=== PATIENT | male | born 1940 | race Caucasian/White ===

== ENCOUNTER 2019-05-02 09:49 | Emergency (ER) | payer MEDICARE, BC ==
[2019-05-02 09:58] VITALS: BP 140/76; PULSE 84
[2019-05-02] MEDS ORDERED: Acetaminophen/HYDROcodone 325-5 MG Tab PO ONE (10:27)
--- NOTE | 2019-05-02 11:17 | EDM.PDOC ---
ED HPI GENERAL MEDICAL PROBLEM - General Chief Complaint: Upper Extremity Injury/Pain Stated Complaint: LEFT WRIST MAYBE BROKEN Time Seen by Provider: 05/02/19 10:13 Source of Information: Reports: Patient, Family, RN Notes Reviewed - History of Present Illness INITIAL COMMENTS - FREE TEXT/NARRATIVE: 79-year-old male comes in with left wrist injury. He was helping out with calving type chores and an angry cow attacked and hit him knocking him over with resultant left wrist injury. His pain swelling and deformity of the left wrist. No weakness, numbness or tingling. He also did hit his right face on something but that discomfort is very mild. No Headache or LOC. No neck or back discomfort. No chest pain or difficulty breathing. Left Wrist Pain Score (Numeric/FACES): 10 - Related Data Allergies Allergy/AdvReac Type Severity Reaction Status Date / Time No Known Allergies Allergy Verified 05/02/19 09:59 Home Meds: Home Meds Acetaminophen/HYDROcodone [[place] 325-5 MG] 1 tab PO Q6H PRN #14 tablet 05/02/19 [Rx] Past Medical History - Past Surgical History Musculoskeletal Surgical History: Reports: Knee Replacement Other Musculoskeletal Surgeries/Procedures:: bilateral Social & Family History - Tobacco Use Smoking Status *Q: Never Smoker Second Hand Smoke Exposure: No - Caffeine Use Caffeine Use: Reports: Coffee - Recreational Drug Use Recreational Drug Use: No Review of Systems - Review of Systems Review Of Systems: See Below Eyes: Reports: No Symptoms Ears: Reports: No Symptoms Nose: Reports: No Symptoms Mouth/Throat: Reports: No Symptoms Respiratory: Denies: Shortness of Breath, Pleuritic Chest Pain Cardiovascular: Denies: Chest Pain GI/Abdominal: Denies: Abdominal Pain Musculoskeletal: Reports: Joint Pain (Left wrist) Skin: Reports: No Symptoms Neurological: Denies: Numbness, Tingling, Weakness ED EXAM, GENERAL - Physical Exam Exam: See Below General Appearance: Alert, Mild Distress Eye Exam: Bilateral Eye: PERRL Nose: Normal Inspection Throat/Mouth: Normal Inspection Head: Other (Very mild erythema swelling right mid face, no bony tenderness, jaw nontender with good range of motion) Neck: Supple, Non-Tender Respiratory/Chest: No Respiratory Distress, Lungs Clear, Normal Breath Sounds, Chest Non-Tender Cardiovascular: Regular Rate, Rhythm Back Exam: No: Paraspinal Tenderness, Vertebral Tenderness Extremities: Joint Swelling (There is swelling, deformity of the left wrist moderate diffuse tenderness, voiding motion of the wrist due to discomfort.) Neurological: Alert, Oriented, No Motor/Sensory Deficits Skin Exam: Warm, Dry, Normal Color Course - Vital Signs Last Recorded V/S: Last Vital Signs Temp 97.6 F 05/02/19 09:55 Pulse 84 05/02/19 09:55 Resp 18 05/02/19 09:55 BP 140/76 05/02/19 09:55 Pulse Ox 95 05/02/19 09:55 - Orders/Labs/Meds Orders: Active Orders 24 hr Category Date Time Status Wrist Comp Min 3V Lt [CR] Stat Exams 05/02/19 10:23 Taken DME for Discharge [COMM] Stat Oth 05/02/19 12:10 Ordered Meds: Medications Discontinued Medications Generic Name Dose Route Start Last Admin Trade Name Freq PRN Reason Stop Dose Admin Hydrocodone Bitart/Acetaminophen 1 tab 05/02/19 10:27 05/02/19 10:32 [place] 325-5 Mg PO 05/02/19 10:28 1 tab ONETIME ONE Administration - Re-Assessments/Exams Free Text/Narrative Re-Assessment/Exam: 05/02/19 12:18 Xays do show displaced fracture of the left wrist with volar displacement. He has no weakness, numbness or tingling. Splint has been applied, we have contacted Dr. Mayers's office, he will review the x-rays, contact patient for follow-up appointment. Ied. Departure - Departure Time of Disposition: 11:11 Disposition: Home, Self-Care 01 Condition: Fair Clinical Impression: Fall Wrist fracture, left Qualifiers: Encounter type: initial encounter Fracture type: closed Qualified Code(s): S62.102A - Fracture of unspecified carpal bone, left wrist, initial encounter for closed fracture - Discharge Information Prescriptions: Acetaminophen/HYDROcodone [[place] 325-5 MG] 1 tab PO Q6H PRN #14 tablet PRN Reason: Pain Instructions: RICE Therapy for Routine Care of Injuries, [id number], Radial Fracture, Ulnar Fracture Referrals: Jus Barger MD [Primary Care Provider] - Forms: ED Department Discharge Additional Instructions: Ice packs and elevation for swelling. Fiberglass wrist splint, keep splint dry. Sling. Tylenol every 6 to 8 hours as needed for mild to moderate discomfort or hydrocodone if needed for more severe pain. Prescription has been sent to [facility] [place] at the [employer] [facility]. You may also take just a half tablet hydrocodone q 6 to 8 hr along with 500 mg tylenol once the pain is less severe. See Dr. Mayers, Orthopedist in follow-up. He will review the Xrays today and his office will call you to give a time for follow up appointment. Sepsis Event Note - Evaluation Sepsis Screening Result: No Definite Risk - Focused Exam Vital Signs: Vital Signs Temp Pulse Resp BP Pulse Ox 05/02/19 09:55 97.6 F 84 18 140/76 95 Date Exam was Performed: 05/02/19 Time Exam was Performed: 12:14 - My Orders Last 24 Hours: My Active Orders 05/02/19 10:23 Wrist Comp Min 3V Lt [CR] Stat 05/02/19 12:10 DME for Discharge [COMM] Stat - Assessment/Plan Last 24 Hours: My Active Orders 05/02/19 10:23 Wrist Comp Min 3V Lt [CR] Stat 05/02/19 12:10 DME for Discharge [COMM] Stat
--- NOTE | 2019-05-02 12:21 | CR ---
Left wrist: Four views of the left wrist were obtained. Comparison: No prior wrist study. Distal left radial fracture is seen with anterior displacement of the distal fragment. Fracture is noted within the ulnar styloid process. Soft tissue swelling is noted. Degenerative change is noted within the CMC joint of the thumb. Joint space narrowing is also noted off the distal navicular bone. Impression: 1. Displaced distal left radial fracture. 2. Ulnar styloid avulsion fracture. 3. Other findings as described above. Diagnostic code #3 This report was dictated in [place] Standard Time
== END 2019-05-02 12:05 | disposition home or self-care (01) ==
LOC: JD.ED 09:49
DX: S52.502A Unspecified fracture of the lower end of left radius, initial encounter for closed fracture (principal); S52.612A Displaced fracture of left ulna styloid process, initial encounter for closed fracture; W55.22XA Struck by cow, initial encounter
CPT/HCPCS: 29125; 73110; 99283; A9270

== ENCOUNTER 2019-05-09 06:29 | Day surgery (SDC) | payer MEDICARE, BC ==
[~2019-05-09 06:29] MED LIST: Lactated Ringers 1,000 ML IV SCH; Lidocaine 1%/Sod Bicarbonate in NS 8.4% 1 ML Syringe IDERM PRN; Sodium Chloride 0.9% 10 ML Syringe FLUSH PRN
--- NOTE | 2019-05-09 07:18 | PCM.PREANE ---
Preanesthetic Assessment - Anesthesia/Transfusion/Family Hx Anesthesia History: Prior Anesthesia Without Reaction Transfusion History: No Prior Transfusion(s) - Review of Systems General: No Symptoms Pulmonary: No Symptoms Cardiovascular: No Symptoms Gastrointestinal: No Symptoms Neurological: No Symptoms Other: Reports: None - Physical Assessment NPO Status Date: 05/08/19 NPO Status Time: 19:00 Vital Signs: Last Vital Signs Temp 97.6 F 05/09/19 06:35 Pulse 73 05/09/19 06:35 Resp 16 05/09/19 06:35 BP 134/82 05/09/19 06:35 Pulse Ox 97 05/09/19 06:35 Height: 1.83 m Weight: 99.337 kg ASA Class: 2 Mental Status: Alert & Oriented x3 Airway Class: Mallampati = 2 Dentition: Reports: Normal Dentition Thyro-Mental Finger Breadths: 3 Mouth Opening Finger Breadths: 3 ROM/Head Extension: Full Lungs: Clear to Auscultation Cardiovascular: Regular Rate - Lab Values: Laboratory Last Values MRSA (PCR) Negative 05/03/19 14:13 - Allergies Allergies/Adverse Reactions: Allergies Allergy/AdvReac Type Severity Reaction Status Date / Time No Known Allergies Allergy Verified 05/06/19 12:56 - Anesthesia Plan Beta Terra: Metoprolol Med Last Dose Date: 05/08/19 Med Last Dose Time: 10:00 - Acknowledgements Anesthesia Type Planned: General Anesthesia Pt an Appropriate Candidate for the Planned Anesthesia: Yes Alternatives and Risks of Anesthesia Discussed w Pt/Guardian: Yes Pt/Guardian Understands and Agrees with Anesthesia Plan: Yes PreAnesthesia Questionnaire HEENT History: Reports: Hard of Hearing, Impaired Vision, Other (See Below) Cardiovascular History: Reports: Hypertension Respiratory History: Reports: Sleep Apnea Gastrointestinal History: Reports: None Genitourinary History: Reports: None INDIGO VAT TENDER CLOTH History: Reports: None Musculoskeletal History: Reports: Arthritis, Other (See Below) Other Musculoskeletal History: left wrist fracture Psychiatric History: Reports: None Endocrine/Metabolic History: Reports: None Hematologic History: Reports: None Oncologic (Cancer) History: Reports: None Dermatologic History: Reports: None - Past Surgical History Head Surgeries/Procedures: Reports: None HEENT Surgical History: Reports: None Cardiovascular Surgical History: Reports: None Respiratory Surgical History: Reports: None GI Surgical History: Reports: Colonoscopy Female Surgical History: Reports: None Male Surgical History: Reports: None Endocrine Surgical History: Reports: None Neurological Surgical History: Reports: Lumbar Spine Musculoskeletal Surgical History: Reports: Knee Replacement Other Musculoskeletal Surgeries/Procedures:: bilateral Oncologic Surgical History: Reports: None Dermatological Surgical History: Reports: None - SUBSTANCE USE Smoking Status *Q: Never Smoker Recreational Drug Use History: No - HOME MEDS Home Medications: Home Meds Ascorbic Acid [Vitamin C] 500 mg PO DAILY 05/06/19 [History] Iron 18 mg PO DAILY 05/06/19 [History] Lisinopril/Hydrochlorothiazide [Lisinopril-Hctz 10-12.5 mg Tab] 1 tab PO DAILY 05/06/19 [History] Metoprolol Succinate [Toprol XL] 25 mg PO DAILY 05/06/19 [History] Acetaminophen/HYDROcodone [[place] 325-5 MG] 1 - 2 tab PO Q6H PRN #20 tablet 05/08 [Rx] - CURRENT (IN HOUSE) MEDS Current Meds: Current Medications Lactated Ringer's (Ringers, Lactated) 1,000 mls @ 125 mls/hr IV ASDIRECTED JARED Stop: 05/09/19 23:00 Lidocaine/Sodium Bicarbonate (Buffered Lidocaine 1% In Ns 8.4%) 0.25 ml IDERM ONETIME PRN PRN Reason: Prior to IV Start Stop: 05/09/19 18:00 Sodium Chloride (Saline Flush) 10 ml FLUSH ASDIRECTED PRN PRN Reason: Keep Vein Open Stop: 05/09/19 18:00 Discontinued Medications Bupivacaine HCl (Sensorcaine-Mpf 0.25%) Confirm Administered Dose 30 ml .ROUTE .STK-MED ONE Stop: 05/09/19 06:57
[2019-05-09] MEDS ORDERED: Propofol 200 MG/20 ML SDV ONE (07:28)
[2019-05-09] MEDS ORDERED: fentaNYL 250 MCG/5 ML SDV ONE (07:28)
[2019-05-09] MEDS ORDERED: Midazolam 1 MG/ML 2 ML SDV ONE (07:32)
[2019-05-09] MEDS ORDERED: Ondansetron 4 MG/2 ML SDV ONE (08:16)
[2019-05-09] MEDS: Bupivacaine 0.25% 10 ML SDV ONE ×2 (08:23→08:57)
[2019-05-09] MEDS ORDERED: HYDROmorphone 0.5 MG/0.5 ML Syringe IVPUSH PRN (08:27)
[2019-05-09] MEDS ORDERED: fentaNYL 100 MCG/2 ML SDV IVPUSH PRN (08:27)
[2019-05-09] MEDS ORDERED: Lactated Ringers 1,000 ML ONE (08:58)
[2019-05-09] MEDS ORDERED: Acetaminophen/HYDROcodone 325-5 MG Tab PO PRN (09:35)
--- NOTE | 2019-05-09 09:43 | PCM.POSTAN ---
POST ANESTHESIA ASSESSMENT - MENTAL STATUS Mental Status: Alert, Oriented - VITAL SIGNS Vital Signs: Last Vital Signs Temp 97.4 F 05/09/19 09:14 Pulse 76 05/09/19 09:14 Resp 12 05/09/19 09:14 BP 152/75 H 05/09/19 09:14 Pulse Ox 92 L 05/09/19 09:14 - RESPIRATORY Respiratory Status: Respiratory Rate WNL, Airway Patent, O2 Saturation Stable, Supplemental Oxygen - CARDIOVASCULAR CV Status: Pulse Rate WNL, Blood Pressure Stable - GASTROINTESTINAL GI Status: No Symptoms - PAIN Pain Score: 6 - POST OP HYDRATION Hydration Status: Adequate & Stable
[2019-05-09] MEDS ORDERED: Ropivacaine 0.5% 5 MG/ML 30 ML SDV ONE (12:22)
[2019-05-09] MEDS ORDERED: Lidocaine 1% 8 ML ONE (12:24)
--- NOTE | 2019-05-09 13:57 | CR ---
Left wrist: 11 fluoroscopic spot views of the left wrist were obtained. Comparison: Prior left wrist exam of 05/02/19. Study shows reduction of previous distal radial fracture. Study also shows placement of plate and screws affixing the fracture line. Fracture within the ulnar styloid process is again noted. Fluoroscopy time given as 27.3 seconds. Impression: 1. Procedural study as described above. Diagnostic code #2 This report was dictated in MDT
--- NOTE | 2019-05-09 14:56 | PCM.PRNOTE ---
- Free Text/Narrative Note: Postoperative regional pain control requested by surgeon. Pre-op Dx: Left wrist fracture Surgical procedure: Left wrist open reduction with internal fixation Procedure: Left axillary block of brachial plexus with U/S guidance Requesting physician: Dr. Manuel Telles Postoperatively the patient has been complaining on pain 7-8/10 despite being medicated with IV and then oral opioid analgetics without a significant relief. Per Dr. Telles request the axillary block of the brachial plexus was offered to the patient for postoperative main management. Risks and benefits discussed with the patient and his daughter postoperatively including infection, bleeding, incomplete or failed block, possible nerve damage , local anesthetic toxicity. Chart reviewed, VS stable. Permit signed by the patient's daughter. Patient in preoperative room, stable , alert and awake. Time out performed at 12 :35. Oxygen 2L via NC. Left arm abducted 90 degrees, supinated and supported on the bedside table. Left arm has been prepped with Chloraprep x 1 and allowed to dry. Under aseptic technique, the brachial plexus branches were identified around axillary artery under ultrasound prior to needle insertion. Local skin infiltration with 2 mls of 1% Lidocaine. 4" Stimuplex needle #22 G was inserted under US guidance. Under direct visualization of needle tip the injection of 0.5% Ropivacaine 20 ml mixed with 8 ml of Lidocaine 1% total of 28 mls in divided doses (23 mls at median, radial and ulnar branches, and 5 ml around musculocutaneous nerve after needle redirection. Negative aspiration was maintained with each 3 ml aliquot of injection. completed without problems. No local anesthetic toxicity was noted. Patient is awake, stable and tolerated the procedure well. Please see the attached U/S images Time: 12:35 - 12:43
--- NOTE | 2019-05-09 14:59 | PCM48HPAN ---
Post Anesthesia Note - EVALUATION WITHIN 48HRS OF ANESTHETIC Vital Signs in Normal Range: Yes Patient Participated in Evaluation: Yes Respiratory Function Stable: Yes (patient sleepy, going for extended floor recovery with supplementary oxygen) Airway Patent: Yes Cardiovascular Function Stable: Yes Hydration Status Stable: Yes Pain Control Satisfactory: Yes Nausea and Vomiting Control Satisfactory: Yes Mental Status Recovered: Yes (patient sleepy, going for extended floor recovery. ) Vital Signs: Last Vital Signs Temp 98.6 F 05/09/19 14:20 Pulse 73 05/09/19 14:20 Resp 16 05/09/19 14:20 BP 118/65 05/09/19 14:20 Pulse Ox 94 L 05/09/19 14:30 - COMMENTS/OBSERVATIONS Free Text/Narrative:: Patient is being transferred for extended floor recovery
[2019-05-09 15:10] VITALS: BP 101/61; PULSE 66
--- NOTE | 2019-05-12 08:12 | PCM.OPNOTE ---
- General Post-Op/Procedure Note Date of Surgery/Procedure: 05/09/19 Operative Procedure(s): open reduction internal fixation of left distal radius fracture Pre Op Diagnosis: left displaced 2 part distal radius fracture Post-Op Diagnosis: Same Anesthesia Technique: General LMA, Local Primary Surgeon: Manuel Mayers Anesthesia Provider: Osmar Mendez Copyholder: Bhumi Dominguez in mLs: 5 Complications: None Condition: Good
--- NOTE | 2019-05-12 08:56 | OR ---
DATE OF OPERATION: 05/09/2019 SURGEON: Manuel Mayers MD OPERATION PERFORMED: Open reduction and internal fixation of left distal radius fracture. PREOPERATIVE DIAGNOSIS: Left displaced 2-part distal radius fracture. POSTOPERATIVE DIAGNOSIS: Left displaced 2-part distal radius fracture. ANESTHESIA: General LMA with local. ANESTHESIA PROVIDER: Marguerite Townsend. EXPRESSIVE THERAPIST: Bhumi Dominguez PA-C. ESTIMATED BLOOD LOSS: Less than 5 mL. COMPLICATIONS: None. CONDITION: Stable. DESCRIPTION OF PROCEDURE: The patient was identified in the preoperative holding area, where proper site was marked and identified by surgeon. The patient was taken back to the operating theater, where after adequate anesthesia, the patient's left upper extremity had a nonsterile tourniquet applied and it was sterilely prepped and draped in the usual sterile fashion. OR time-out was performed. The patient received 2 g IV Ancef. At this time, left upper extremity was exsanguinated and tourniquet was insufflated to 225 mmHg. Standard volar approach of Terry was done. This was taken down to the FCR tendon. The FCR tendon was retracted ulnarly to protect the median nerve and the floor of the tendon sheath was opened. This was taken down to the pronator quadratus which was elevated subperiosteally off the distal radius. The fracture site was identified, it was curetted, rongeured, and irrigated out of all fracture hematoma and soft tissue. Reduction was done utilizing C-arm fluoroscopy showing adequate reduction. There was still a minor amount of radial displacement, but it was very minimal. At this point, the [place] volar locking plate was then placed and was found to have adequate positioning on both AP, lateral, and 23-degree lateral views. A nonlocking 2.7 screw was then used both proximally and distally into the fracture site in the plate and it had good compression of the plate to the bone. Next, 4 locking screws were placed distally and then 2 more locking screws were placed proximally. It was found to have adequate reduction on both AP, lateral, and 23-degree lateral views on utilizing C-arm fluoroscopy throughout the case. Adequate saline was then irrigated through the wound. 3-0 Vicryl was used subcutaneously. Monocryl was used for the skin. The patient had a sterile soft dressing and a volar slab splint applied and was sent to the PACU in stable condition. RICKI: 05/12/2019 08:25:18 MMODAL /[id number]
== END 2019-05-09 20:00 | disposition home or self-care (01) ==
LOC: JD.SDS 06:29 → JD.MS 16:30 → JD.SDS 20:00
PROVIDERS: ATTEND Orthopaedic Surgery
DX: S52.552A Other extraarticular fracture of lower end of left radius, initial encounter for closed fracture (principal); G47.33 Obstructive sleep apnea (adult) (pediatric); I10 Essential (primary) hypertension; Z79.899 Other long term (current) drug therapy; X58.XXXA Exposure to other specified factors, initial encounter
CPT/HCPCS: 25607; 76000; 87641; 93005; A9270; C1713; C1776; J2001; J2250; J2405; J2704; J2795; J3010; J3490; J7120; 01830

== ENCOUNTER 2020-02-15 22:23 | Observation (INO) | payer MEDICARE, BC ==
[2020-02-15] MEDS ORDERED: FLU Vacc QV2020-21(65YR UP)/PF 240 MCG/0.7 ML Syringe IM ONE (22:45)
--- NOTE | 2020-02-15 22:57 | EDM.PDOC ---
ED HPI GENERAL MEDICAL PROBLEM - General Chief Complaint: Chest Pain Stated Complaint: CHEST PAIN/FATIGUE Time Seen by Provider: 02/15/20 22:32 Source of Information: Reports: Patient History Limitations: Reports: No Limitations - History of Present Illness INITIAL COMMENTS - FREE TEXT/NARRATIVE: Mr. Larios is a very pleasant 80-year-old gentleman who now presents the ED with a complaint of right-sided chest pain on and off since February or March of this year. Describes the pain as a "ache" however, he states that it is a genuine pain, not just a discomfort. The pain does not radiate anywhere, although he states that he occasionally will have a tingling/numbness sensation extending from his left 4th and 5th fingers up his arm. He occasionally has associated dyspnea and very mild diaphoresis, however, no associated nausea or sense of impending doom. He reports feeling fatigued with exertion for the past 2 weeks. His symptoms are usually brought on with exertion, and relieved with rest. Initially, his symptoms were very infrequent, and typically lasted 15 to 20 minutes before resolving, however, the frequency and duration have increased, to the point that his chest pain was pretty much constant all day today. He states that he had chest pain right up until the time he got to the ED, however, his chest pain resolved shortly after arrival, and he has remained chest pain free since. The patient states that he may have undergone a cardiac stress test about 2 years ago, which was negative. He states that he saw a physician standing in for his PCP about 2 weeks ago. They discussed his symptoms, however, no tests were ordered, according to the patient. Here in the ED, the patient is found to be hemodynamically stable, afebrile, saturating 96% on room air. Other than the above symptoms, the patient denies having a recent fever, chills, sore throat, ear pain, nasal or sinus congestion, cough, palpitations, nausea, vomiting, constipation, diarrhea, abdominal pain, urinary symptoms, recent weight gain or weight loss, recent bloody bowel movements or black bowel movements, recent joint aches, headaches, or rashes. The patient's PCP is Dr. Jus Barger. His Orthopedic Surgeon is Dr. Manuel Mayers. He has not received an influenza vaccine this season, but agreed to receive one here in the ED. Right Chest Pain Score (Numeric/FACES): 6 - Related Data Allergies Allergy/AdvReac Type Severity Reaction Status Date / Time No Known Allergies Allergy Verified 02/15/20 22:33 Home Meds: Home Meds Ascorbic Acid [Vitamin C] 500 mg PO DAILY 05/06/19 [History] Iron 18 mg PO DAILY 05/06/19 [History] Lisinopril/Hydrochlorothiazide [Lisinopril-Hctz 10-12.5 mg Tab] 1 tab PO DAILY 05/06/19 [History] Metoprolol Succinate [Toprol XL] 25 mg PO DAILY 05/06/19 [History] Rosuvastatin [Crestor] 10 mg PO DAILY 02/15/20 [History] Past Medical History HEENT History: Reports: Hard of Hearing (wears hearing aids), Impaired Vision Cardiovascular History: Reports: High Cholesterol, Hypertension Respiratory History: Reports: Sleep Apnea Musculoskeletal History: Reports: Fracture (let wrist), Osteoarthritis Endocrine/Metabolic History: Reports: Other (See Below) (Prediabetes) - Past Surgical History HEENT Surgical History: Reports: Cataract Surgery (right only), Eye Surgery (repair of traumatic injury as a child), Oral Surgery (dental extractions) GI Surgical History: Reports: Colonoscopy Neurological Surgical History: Reports: Lumbar Spine (laminectomy) Musculoskeletal Surgical History: Reports: Knee Replacement (bilateral), ORIF (left wrist) Other Musculoskeletal Surgeries/Procedures:: bilateral Social & Family History - Tobacco Use Tobacco Use Status *Q: Never Tobacco User - Caffeine Use Caffeine Use: Reports: None - Alcohol Use Alcohol Use History: Yes Alcohol Use Frequency: Socially - Recreational Drug Use Recreational Drug Use: No - Living Situation & Occupation Living situation: Reports: , Alone Occupation: Retired ED ROS GENERAL - Review of Systems Review Of Systems: Comprehensive ROS is negative, except as noted in HPI. ED EXAM, GENERAL - Physical Exam Exam: See Below Exam Limited By: No Limitations General Appearance: Alert, WD/WN, No Apparent Distress Eye Exam: Bilateral Eye: EOMI, Normal Inspection Ears: Normal External Exam, Hearing Loss Nose: Normal Inspection Throat/Mouth: Normal Inspection, Normal Lips, Normal Voice, No Airway Compromise Head: Atraumatic, Normocephalic Neck: Normal Inspection, Full Range of Motion Respiratory/Chest: No Respiratory Distress, Lungs Clear, Normal Breath Sounds, No Accessory Muscle Use, Chest Non-Tender Cardiovascular: Normal Peripheral Pulses, Regular Rate, Rhythm, No Edema, No Gallop, No JVD, No Murmur, No Rub Peripheral Pulses: 3+: Radial (L), Radial (R) GI/Abdominal: Normal Bowel Sounds, Soft, Non-Tender (including the RUQ and epigastrium), No Organomegaly, No Distention, No Abnormal Bruit, No Mass Back Exam: Normal Inspection, Full Range of Motion, NT Extremities: Normal Inspection, Normal Range of Motion, No Pedal Edema, Normal Capillary Refill Neurological: Alert, Oriented, Normal Cognition, No Motor/Sensory Deficits Psychiatric: Normal Affect Skin Exam: Warm, Dry, Intact, Normal Color, No Rash #1 Interpretation EKG Date: 02/15/20 Time: 22:30 Rhythm: NSR Rate (Beats/Min): 62 [place]: LAD-Left [place] Deviation P-Wave: Present QRS: Normal ST-T: Normal QT: Normal Comparison: No Change (05/09/2019) Course - Vital Signs Last Recorded V/S: Last Vital Signs Temp 36.8 C 02/16/20 04:00 Pulse 57 L 02/16/20 04:00 Resp 16 02/16/20 04:00 BP 128/72 02/16/20 04:00 Pulse Ox 97 02/16/20 04:00 - Orders/Labs/Meds Orders: Active Orders 24 hr Category Date Time Status EKG Documentation Completion [RC] STAT Care 02/15/20 22:33 Active Influenza Vaccine Charge [RC] .DISCHARGE Care 02/15/20 22:37 Active Ang Chest [CT] Stat Exams 02/16/20 00:23 Taken Chest 2V [CR] Stat Exams 02/15/20 22:54 Taken Sodium Chloride 0.9% [Normal Saline] 1,000 ml Med 02/16/20 00:30 Active IV ASDIRECTED Medication Orders Sodium Chloride (Normal Saline) 1,000 mls @ 100 mls/hr IV ASDIRECTED JARED Last Admin: 02/16/20 00:41 Dose: 100 mls/hr Documented by: ALISA Pneumococcal Polyvalent Vaccine (Pneumovax 23) 0.5 ml IM .ONCE ONE Stop: 02/16/20 10:01 Labs: Laboratory Tests 02/15/20 02/15/20 02/15/20 Range/Units 22:35 22:35 22:35 WBC 6.10 (4.23-9.07) K/mm3 RBC 4.72 (4.63-6.08) M/mm3 Hgb 15.1 (13.7-17.5) gm/dl Hct 45.2 (40.1-51.0) % MCV 95.8 H (79.0-92.2) fl MCH 32.0 (25.7-32.2) pg MCHC 33.4 (32.2-35.5) g/dl RDW Std Deviation 46.0 H (35.1-43.9) fL Plt Count 208 (163-337) K/mm3 MPV 9.9 (9.4-12.3) fl Neutrophils % (Manual) 71 H (40-60) % Band Neutrophils % 1 (0-10) % Lymphocytes % (Manual) 20 (20-40) % Atypical Lymphs % 0 % Monocytes % (Manual) 7 (2-10) % Eosinophils % (Manual) 0 L (0.8-7.0) % Basophils % (Manual) 1 (0.2-1.2) Platelet Estimate Adequate RBC Morph Comment Normal D-Dimer, Quantitative 1.48 H (0.19-0.50) mg/L Sodium 140 (136-145) mEq/L Potassium 4.3 (3.5-5.1) mEq/L Chloride 106 (98-107) mEq/L Carbon Dioxide 27 (21-32) mEq/L Anion Gap 11.3 (5-15) BUN 31 H (7-18) mg/dL Creatinine 1.4 H (0.7-1.3) mg/dL Est Cr Clr Drug Dosing 46.19 mL/min Estimated GFR (MDRD) 49 (>60) mL/min BUN/Creatinine Ratio 22.1 H (14-18) Glucose 101 (83-115) mg/dL Calcium 8.8 (8.5-10.1) mg/dL Magnesium 2.1 (1.8-2.4) mg/dl Total Bilirubin 0.4 (0.2-1.0) mg/dL AST 17 (15-37) U/L ALT 23 (16-63) U/L Alkaline Phosphatase 104 (46-116) U/L Troponin I < 0.017 (0.00-0.056) ng/mL NT-Pro-B Natriuret Pep (0-450) pg/mL Total Protein 6.5 (6.4-8.2) g/dl Albumin 3.9 (3.4-5.0) g/dl Globulin 2.6 gm/dL Albumin/Globulin Ratio 1.5 (1-2) 02/15/20 Range/Units 22:35 WBC (4.23-9.07) K/mm3 RBC (4.63-6.08) M/mm3 Hgb (13.7-17.5) gm/dl Hct (40.1-51.0) % MCV (79.0-92.2) fl MCH (25.7-32.2) pg MCHC (32.2-35.5) g/dl RDW Std Deviation (35.1-43.9) fL Plt Count (163-337) K/mm3 MPV (9.4-12.3) fl Neutrophils % (Manual) (40-60) % Band Neutrophils % (0-10) % Lymphocytes % (Manual) (20-40) % Atypical Lymphs % % Monocytes % (Manual) (2-10) % Eosinophils % (Manual) (0.8-7.0) % Basophils % (Manual) (0.2-1.2) Platelet Estimate RBC Morph Comment D-Dimer, Quantitative (0.19-0.50) mg/L Sodium (136-145) mEq/L Potassium (3.5-5.1) mEq/L Chloride (98-107) mEq/L Carbon Dioxide (21-32) mEq/L Anion Gap (5-15) BUN (7-18) mg/dL Creatinine (0.7-1.3) mg/dL Est Cr Clr Drug Dosing mL/min Estimated GFR (MDRD) (>60) mL/min BUN/Creatinine Ratio (14-18) Glucose (83-115) mg/dL Calcium (8.5-10.1) mg/dL Magnesium (1.8-2.4) mg/dl Total Bilirubin (0.2-1.0) mg/dL AST (15-37) U/L ALT (16-63) U/L Alkaline Phosphatase (46-116) U/L Troponin I (0.00-0.056) ng/mL NT-Pro-B Natriuret Pep 743 H (0-450) pg/mL Total Protein (6.4-8.2) g/dl Albumin (3.4-5.0) g/dl Globulin gm/dL Albumin/Globulin Ratio (1-2) Meds: Medications Generic Name Dose Route Start Last Admin Trade Name Freq PRN Reason Stop Dose Admin Sodium Chloride 1,000 mls @ 100 mls/hr 02/16/20 00:30 02/16/20 00:41 Normal Saline IV 100 mls/hr ASDIRECTED JARED Administration Pneumococcal Polyvalent Vaccine 0.5 ml 02/16/20 10:00 Pneumovax 23 IM 02/16/20 10:01 .ONCE ONE Discontinued Medications Generic Name Dose Route Start Last Admin Trade Name Freq PRN Reason Stop Dose Admin Influenza Virus Vaccine 240 mcg 02/15/20 22:45 02/16/20 00:41 Fluzone High-Dose Quad 2020-21 IM 02/15/20 22:46 240 mcg .ONCE ONE Administration - Re-Assessments/Exams Free Text/Narrative Re-Assessment/Exam: 02/15/20 22:55 The patient's presentation is highly suspicious for angina. His ECG, obtained at triage, demonstrates Q waves in the inferior leads, but is otherwise unremarkable. I have ordered a work-up and includes several blood tests and a chest x-ray. 02/16/20 00:24 Two-view chest radiograph reviewed. The cardiac silhouette is within normal limits. No pulmonary vascular congestion. No pleural effusions. No focal infiltrate although there does appear to be a small patch of atelectasis just superior to the right hemidiaphragm. No pneumothorax. Thoracic scoliosis incidentally noted. Formal read per the Radiologist pending. The patient's CMP is remarkable for a BUN/Cr elevated at 31/1.4, with the remainder of his CMP, his magnesium level, his CBC, and his troponin being unremarkable. His D-dimer is elevated at 1.48. His pro-BNP is modestly elevated at 743. Based on the above, I have ordered a CT angiogram of the chest, along with IV fluid. 02/16/20 01:24 CT angiogram of the chest is read by [facility] as: 1. Negative for thoracic aortic aneurysm or dissection. 2. Negative for pulmonary embolus. 3. Dependent ground-glass opacities bilateral lower lobes, either dependent edema, dependent hypoventilation. 02/16/20 02:[address] Mckeon at 02:37. He agreed to place the patient into observation with the plan to get a cardiac stress test this morning. 02/16/20 02:41 The above plan was discussed with the patient. He is agreeable. Departure - Departure Time of Disposition: 02:42 Disposition: Refer to Observation Condition: Good Clinical Impression: Exertional angina Sepsis Event Note (ED) - Evaluation Sepsis Screening Result: No Definite Risk - Focused Exam Vital Signs: Vital Signs Temp Pulse Resp BP Pulse Ox 02/15/20 22:30 36.1 C 61 14 137/63 96 - My Orders Last 24 Hours: My Active Orders 02/15/20 22:33 EKG Documentation Completion [RC] STAT 02/15/20 22:37 Influenza Vaccine Charge [RC] .DISCHARGE 02/15/20 22:54 Chest 2V [CR] Stat 02/16/20 00:23 Ang Chest [CT] Stat 02/16/20 00:30 Sodium Chloride 0.9% [Normal Saline] 1,000 ml IV ASDIRECTED - Assessment/Plan Last 24 Hours: My Active Orders 02/15/20 22:33 EKG Documentation Completion [RC] STAT 02/15/20 22:37 Influenza Vaccine Charge [RC] .DISCHARGE 02/15/20 22:54 Chest 2V [CR] Stat 02/16/20 00:23 Ang Chest [CT] Stat 02/16/20 00:30 Sodium Chloride 0.9% [Normal Saline] 1,000 ml IV ASDIRECTED
[2020-02-16] MEDS ORDERED: Sodium Chloride 0.9% 1,000 ML IV SCH (00:30)
--- NOTE | 2020-02-16 07:08 | PCM.HP.2 ---
H&P History of Present Illness - General Date of Service: 02/16/20 Admit Problem/Dx: Admission Diagnosis/Problem Admission Diagnosis/Problem Chest pain Source of Information: Patient, Old Records, Provider, RN, RN Notes Reviewed History Limitations: Reports: No Limitations - History of Present Illness Initial Comments - Free Text/Narative: This is an 80 yo male who presented to our ED late on 02/15/2020 with chest pain and fatigue. He reports that the pain started in February or March of this year. Reports that it is an ache but states is a genuine pain and not just a discomfort. Denies any radiation however feels a numbness and tingling sensation on his fourth and fifth fingers and up his arm. Reports escalation of dyspnea and mild diaphoresis but no associated nausea or sense of impending doom. States has been fatigued with exertion for the past 2 weeks. Reports the pain presents with exertion but relieves with rest. States that symptom with C and duration have been increasing. Pain was present prior to ED admission but he remained pain-free in the ED. Believes he had a cardiac stress test 2 years prior which was negative. States he saw a physician 2 weeks prior but no testing was done. Denies any recent fever, chills, sore throat, ear pain, nasal or sinus congestion, cough, palpitations, nausea, vomiting, constipation, diarrhea, abdominal pain, urinary symptoms, recent rate weight gain or weight loss, recent bloody bowel movements or black bowel movements, joint aches, headaches, or rashes. In the ED temp was 36.8 Celsius. Pulse 57. Respirations 16. Blood pressure was 128/72. Pulse ox 97% on room air. Twelve-lead EKG is obtained showing a sinus rhythm at 62 bpm with left axis deviation. This was compared to a prior twelve-lead EKG from 05/09/2019 with no change noted. Labs were obtained and CBC is grossly normal. D-dimer is elevated at 1.48. CMP is grossly normal however creatinine is noted to be 1.4, GFR is 49, and BUN is 31. Troponin is less than 0.017. BNP is 743. He started on NS and given the pneumonia and influenza vaccine. Chest x-ray is obtained showing probable bibasilar atelectasis and other incidental findings. Given the elevated D-dimer a CTA is obtained showing "1. Groundglass appearance within the right lung base. This could represent mild pneumonia as well as an area of atelectasis. 2. Minimal atelectasis within the left lung base. 3. No findings of pulmonary embolism. Nothing acute is otherwise seen. Carries a history of HLD, hypertension, sleep apnea, osteoarthritis, and "predia betes". He was never a smoker. His PCP is Dr. Barba. He is subsequently admitted to the floor observation status on telemetry for monitoring of his chest pain. Right Chest Pain Score (Numeric/FACES): 2 - Related Data Allergies/Adverse Reactions: Allergies Allergy/AdvReac Type Severity Reaction Status Date / Time No Known Allergies Allergy Verified 02/15/20 22:33 Home Medications: Home Meds Ascorbic Acid [Vitamin C] 500 mg PO DAILY 05/06/19 [History] Iron 18 mg PO DAILY 05/06/19 [History] Lisinopril/Hydrochlorothiazide [Lisinopril-Hctz 10-12.5 mg Tab] 1 tab PO DAILY 05/06/19 [History] Metoprolol Succinate [Toprol XL] 25 mg PO DAILY 05/06/19 [History] Rosuvastatin [Crestor] 10 mg PO DAILY 02/15/20 [History] Past Medical History HEENT History: Reports: Hard of Hearing, Impaired Vision Cardiovascular History: Reports: High Cholesterol, Hypertension Respiratory History: Reports: Sleep Apnea Gastrointestinal History: Reports: None Genitourinary History: Reports: None [employer]PHOL[employer]CH[employer]IC History: Reports: None Musculoskeletal History: Reports: Fracture (let wrist), Osteoarthritis Other Musculoskeletal History: left wrist fracture Psychiatric History: Reports: None Endocrine/Metabolic History: Reports: Other (See Below) (Prediabetes) Hematologic History: Reports: None Oncologic (Cancer) History: Reports: None Dermatologic History: Reports: None - Infectious Disease History Infectious Disease History: Reports: Chicken Pox, Shingles - Past Surgical History HEENT Surgical History: Reports: Cataract Surgery (right only), Eye Surgery (repair of traumatic injury as a child), Oral Surgery (dental extractions) Neurological Surgical History: Reports: Lumbar Spine (laminectomy) Musculoskeletal Surgical History: Reports: Knee Replacement (bilateral), ORIF (left wrist) Social & Family History - Family History Family Medical History: No Pertinent Family History Cardiac: Reports: None Oncologic: Reports: Colon - Tobacco Use Tobacco Use Status *Q: Never Tobacco User Used Tobacco, but Quit: No - Caffeine Use Caffeine Use: Reports: Coffee - Recreational Drug Use Recreational Drug Use: No - Living Situation & Occupation Living situation: Reports: , Alone Occupation: Retired H&P Review of Systems - Review of Systems: Review Of Systems: See Below General: Reports: No Symptoms. Denies: Fever, Chills, Weakness, Fatigue, Diaphoresis HEENT: Reports: No Symptoms. Denies: Headaches, Sore Throat Pulmonary: Reports: No Symptoms. Denies: Shortness of Breath, Wheezing, Pleuritic Chest Pain, Cough, Sputum Cardiovascular: Reports: No Symptoms. Denies: Chest Pain (none currently ), Palpitations, Dyspnea on Exertion, Edema Gastrointestinal: Reports: No Symptoms, Abdominal Pain (Reports very mild RUQ pain with deep inspiration ). Denies: Constipation, Diarrhea, Distension, Nausea, Vomiting Genitourinary: Reports: No Symptoms. Denies: Pain Musculoskeletal: Reports: No Symptoms. Denies: Neck Pain, Shoulder Pain, Arm Pain Skin: Reports: No Symptoms. Denies: Cyanosis Psychiatric: Reports: No Symptoms. Denies: Confusion Neurological: Reports: No Symptoms. Denies: Confusion, Dizziness, Numbness, Tingling, Difficulty Walking, Weakness, Gait Disturbance Hematologic/Lymphatic: Reports: No Symptoms Immunologic: Reports: No Symptoms Exam - Exam Exam: See Below - Vital Signs Vital Signs: Last Vital Signs Temp 98.2 F 02/16/20 04:00 Pulse 57 L 02/16/20 04:00 Resp 16 02/16/20 04:00 BP 128/72 02/16/20 04:00 Pulse Ox 97 02/16/20 04:00 Weight: 219 lb 11.2 oz - Exam Quality Assessment: DVT Prophylaxis. No: Supplemental Oxygen General: Alert, Oriented, Cooperative. No: Mild Distress HEENT: Conjunctiva Clear, EACs Clear, Mucosa Moist & [place], Posterior Pharynx Clear Neck: Supple, Trachea Midline Lungs: Normal Respiratory Effort, Decreased Breath Sounds (bases ) Cardiovascular: Regular Rate, Regular Rhythm GI/Abdominal Exam: Normal Bowel Sounds, Soft, Non-Tender, No Distention (Male) Exam: Deferred Rectal (Males) Exam: Deferred Back Exam: Normal Inspection, Full Range of Motion Extremities: Normal Inspection, Normal Range of Motion, Non-Tender, No Pedal Artemio ma, Normal Capillary Refill Skin: Warm, Dry, Intact Neurological: Cranial Nerves Intact (Grossly ) Neuro Extensive - Mental Status: Alert, Oriented x3, Normal Mood/Affect - Patient Data Lab Results Last 24 hrs: Laboratory Results - last 24 hr 02/15/20 02/15/20 02/15/20 Range/Units 22:35 22:35 22:35 WBC 6.10 (4.23-9.07) K/mm3 RBC 4.72 (4.63-6.08) M/mm3 Hgb 15.1 (13.7-17.5) gm/dl Hct 45.2 (40.1-51.0) % MCV 95.8 H (79.0-92.2) fl MCH 32.0 (25.7-32.2) pg MCHC 33.4 (32.2-35.5) g/dl RDW Std Deviation 46.0 H (35.1-43.9) fL Plt Count 208 (163-337) K/mm3 MPV 9.9 (9.4-12.3) fl Neutrophils % (Manual) 71 H (40-60) % Band Neutrophils % 1 (0-10) % Lymphocytes % (Manual) 20 (20-40) % Atypical Lymphs % 0 % Monocytes % (Manual) 7 (2-10) % Eosinophils % (Manual) 0 L (0.8-7.0) % Basophils % (Manual) 1 (0.2-1.2) Platelet Estimate Adequate RBC Morph Comment Normal D-Dimer, Quantitative 1.48 H (0.19-0.50) mg/L Sodium 140 (136-145) mEq/L Potassium 4.3 (3.5-5.1) mEq/L Chloride 106 (98-107) mEq/L Carbon Dioxide 27 (21-32) mEq/L Anion Gap 11.3 (5-15) BUN 31 H (7-18) mg/dL Creatinine 1.4 H (0.7-1.3) mg/dL Est Cr Clr Drug Dosing 46.19 mL/min Estimated GFR (MDRD) 49 (>60) mL/min BUN/Creatinine Ratio 22.1 H (14-18) Glucose 101 (83-115) mg/dL Calcium 8.8 (8.5-10.1) mg/dL Magnesium 2.1 (1.8-2.4) mg/dl Total Bilirubin 0.4 (0.2-1.0) mg/dL AST 17 (15-37) U/L ALT 23 (16-63) U/L Alkaline Phosphatase 104 (46-116) U/L Troponin I < 0.017 (0.00-0.056) ng/mL NT-Pro-B Natriuret Pep (0-450) pg/mL Total Protein 6.5 (6.4-8.2) g/dl Albumin 3.9 (3.4-5.0) g/dl Globulin 2.6 gm/dL Albumin/Globulin Ratio 1.5 (1-2) SARS-CoV-2 RNA (JB) (NEGATIVE) 02/15/20 02/16/20 Range/Units 22:35 02:48 WBC (4.23-9.07) K/mm3 RBC (4.63-6.08) M/mm3 Hgb (13.7-17.5) gm/dl Hct (40.1-51.0) % MCV (79.0-92.2) fl MCH (25.7-32.2) pg MCHC (32.2-35.5) g/dl RDW Std Deviation (35.1-43.9) fL Plt Count (163-337) K/mm3 MPV (9.4-12.3) fl Neutrophils % (Manual) (40-60) % Band Neutrophils % (0-10) % Lymphocytes % (Manual) (20-40) % Atypical Lymphs % % Monocytes % (Manual) (2-10) % Eosinophils % (Manual) (0.8-7.0) % Basophils % (Manual) (0.2-1.2) Platelet Estimate RBC Morph Comment D-Dimer, Quantitative (0.19-0.50) mg/L Sodium (136-145) mEq/L Potassium (3.5-5.1) mEq/L Chloride (98-107) mEq/L Carbon Dioxide (21-32) mEq/L Anion Gap (5-15) BUN (7-18) mg/dL Creatinine (0.7-1.3) mg/dL Est Cr Clr Drug Dosing mL/min Estimated GFR (MDRD) (>60) mL/min BUN/Creatinine Ratio (14-18) Glucose (83-115) mg/dL Calcium (8.5-10.1) mg/dL Magnesium (1.8-2.4) mg/dl Total Bilirubin (0.2-1.0) mg/dL AST (15-37) U/L ALT (16-63) U/L Alkaline Phosphatase (46-116) U/L Troponin I (0.00-0.056) ng/mL NT-Pro-B Natriuret Pep 743 H (0-450) pg/mL Total Protein (6.4-8.2) g/dl Albumin (3.4-5.0) g/dl Globulin gm/dL Albumin/Globulin Ratio (1-2) SARS-CoV-2 RNA (JB) Negative (NEGATIVE) Result Diagrams: 02/15/20 22:35 02/16/20 08:55 Sepsis Event Note - Evaluation Sepsis Screening Result: No Definite Risk - Focused Exam Vital Signs: Vital Signs Temp Pulse Resp BP Pulse Ox 02/16/20 04:00 98.2 F 57 L 16 128/72 97 02/15/20 22:30 97.0 F 61 14 137/63 96 - Problem List (1) HLD (hyperlipidemia) SNOMED Code(s): 26530499 ICD Code: E78.5 - HYPERLIPIDEMIA, UNSPECIFIED Status: Chronic Priority: High Current Visit: No Qualifiers: Hyperlipidemia type: unspecified Qualified Code(s): E78.5 - Hyperlipidemia, unspecified (2) HTN (hypertension) SNOMED Code(s): 60618114 ICD Code: I10 - ESSENTIAL (PRIMARY) HYPERTENSION Status: Chronic Priority: Medium Current Visit: No Qualifiers: Hypertension type: unspecified Qualified Code(s): I10 - Essential (primary) hypertension (3) Sleep apnea SNOMED Code(s): 94025251 ICD Code: G47.30 - SLEEP APNEA, UNSPECIFIED Status: Chronic Priority: Medium Current Visit: No Qualifiers: Sleep apnea type: unspecified type Qualified Code(s): G47.30 - Sleep apnea, unspecified (4) Prediabetes SNOMED Code(s): 704542095 ICD Code: R73.03 - PREDIABETES Status: Chronic Priority: Medium Current Visit: No (5) Chest pain SNOMED Code(s): 18166246 ICD Code: R07.9 - CHEST PAIN, UNSPECIFIED Status: Acute Priority: High Current Visit: Yes Qualifiers: Chest pain type: unspecified Qualified Code(s): R07.9 - Chest pain, unspecified (6) RUQ abdominal pain SNOMED Code(s): 338648147 ICD Code: R10.11 - RIGHT UPPER QUADRANT PAIN Status: Acute Priority: High Current Visit: Yes Problem List Initiated/Reviewed/Updated: Yes Orders Last 24hrs: Active Orders 24 hr Category Date Time Status Patient Status [ADT] Routine ADT 02/16/20 02:46 Active Influenza Vaccine Charge [RC] .DISCHARGE Care 02/15/20 22:37 Active Ang Chest [CT] Stat Exams 02/16/20 00:23 Taken Chest 2V [CR] Stat Exams 02/15/20 22:54 Taken Pneumococcal Polyvalent-23 Vac [Pneumovax 23] Med 02/16/20 10:00 Once 0.5 ml IM .ONCE ONE Sodium Chloride 0.9% [Normal Saline] 1,000 ml Med 02/16/20 00:30 Active IV ASDIRECTED Medication Orders Sodium Chloride (Normal Saline) 1,000 mls @ 100 mls/hr IV ASDIRECTED JARED Last Admin: 02/16/20 00:41 Dose: 100 mls/hr Documented by: ALISA Pneumococcal Polyvalent Vaccine (Pneumovax 23) 0.5 ml IM .ONCE ONE Stop: 02/16/20 10:01 Assessment/Plan Comment:: Day of admission assessment - 02/16/2020 * 80 YO male who presents to our ED with chest pain that has been on and off since February or March * Reports pain appears to be increasing in frequency and duration. * Denies radiation but reports occasional diaphoresis and/or dyspnea * Pain resolved prior to presenting in ED and no pain while in ED * Reports he believes he had negative cardiac stress test about 2 years prior * Hx/O hld, htn, sleep apnea, pre-diabetes * Labs: * WBC 6.10 * Hgb 15.1 * Plt 208 * Neutrophils elevated at 71% * 1% band neutrophils * D-Dimer 1.48 * Sodium 140 * Potassium 4.3 * BUN 31 * Creatinine 1.4 * GFR 49 * Magnesium 2.1 * AST 17, ALT 23, Alk Phos 104 * Troponin <0.017 * Pro-BNP 743 * CXR shows probable bibasilar atelectasis with nothing acute * CTA Shows ground glass appearance in right lung base. PNA vs. Atelectasis. Atelectasis in left lung base. No signs of PE. Nothing acute * Admitted to ICU as overflow MSP observation status with telemetry Plan: Chest Pain HLD (hyperlipidemia) HTN (hypertension) Sleep apnea Prediabetes * Repeat Troponin in AM * Check lipid panel * Repeat 12-lead EKG * Unfortunately no stress testing available until 02/20/2020 * Will require outpatient stress test * Telemetry * IS for atelectasis * Ambulate RUQ Abdominal Pain * Obtain RUQ ultrasound to ensure no liver/gallbladder/pancreatic abnormalities Code status: Full code PCP: Dr. Barger DVT prophylaxis: Social: Patient lives at home alone Disposition: Admitted to ICU as MSP overflow observation status with telemetry for chest pain Prognosis: Good - Mortality Measure Prognosis:: Good
--- NOTE | 2020-02-16 08:55 | CT ---
CT chest Technique: Multiple axial sections through the chest were obtained. Intravenous contrast was utilized. Study has been performed as a pulmonary angiogram protocol. Findings: Pulmonary arteries are fairly well opacified. There are no filling defects seen to indicate pulmonary embolism. There is coronary artery calcification being seen. Abdominal aorta shows mild atherosclerotic calcification without focal aneurysm. No pericardial thickening is appreciated. No axillary adenopathy is appreciated. Visualized upper abdominal structures show cysts within both kidneys. Nothing acute is definitely appreciated. Lung window settings were obtained which show slight groundglass appearance within the right posterior base and mild atelectasis within the left base. Lungs otherwise are clear. No pleural effusions are seen. Bone window settings were reviewed and show no acute osseous finding. Scattered degenerative change is seen within the spine. Impression: 1. Groundglass appearance within the right lung base. This could represent mild pneumonia as well as an area of atelectasis. 2. Minimal atelectasis within the left base. 3. No findings of pulmonary embolism. Nothing acute is otherwise seen. Diagnostic code #2 I agree with preliminary report from [facility], finalized on 02/16/20, 2:17 AM CHIEF COUNSEL
--- NOTE | 2020-02-16 08:55 | CR ---
Chest: 2 views of the chest were obtained. Comparison: No prior chest imaging is available. Heart size is normal. Tortuous thoracic aorta is seen. Slight density is noted within both inferior lungs possibly due to atelectasis. Lungs otherwise are clear. Mild scoliosis is noted within the spine with scattered disc space narrowing and endplate spurring. Impression: 1. Probable bibasilar atelectasis. 2. Other findings which are believed to be incidental as noted above. Diagnostic code #2
[2020-02-16] MEDS ORDERED: Acetaminophen 325 MG Tab PO PRN (08:57)
[2020-02-16] MEDS ORDERED: Non-Formulary Medication 1 Each (Iron [Iron] 18 MG) PO SCH (09:00)
[2020-02-16] MEDS ORDERED: Non-Formulary Medication 1 Each (Ascorbic Acid [Vitamin C] 500 MG) PO SCH (09:00)
[2020-02-16] MEDS ORDERED: Pneumococcal Polyvalent-23 Vaccine 0.5 ML SDV IM ONE (10:00)
[2020-02-16] MEDS ORDERED: Rosuvastatin 10 MG **PTOM PO SCH (10:30)
[2020-02-16] MEDS ORDERED: LISINOPRIL HCTZ PO SCH (10:30)
[2020-02-16] MEDS ORDERED: Metoprolol Succinate 25 MG **PTOM PO SCH (10:30)
--- NOTE | 2020-02-16 11:18 | US ---
Limited abdominal ultrasound: Multiple real-time images were obtained transabdominally. Findings: Study is suboptimal due to bowel gas as well as contraction of the gallbladder. Liver is not optimally seen. No gross abnormality is appreciated. No biliary duct dilatation is seen. Gallbladder is mostly collapsed from recent meal. Right kidney shows no hydronephrosis or discrete mass. Right kidney measures 10.9 cm in length. Pancreas is obscured from bowel gas. Impression: 1. Suboptimal study as noted above. 2. Contracted gallbladder with no biliary duct dilatation. 3. Poorly seen pancreas. Liver is also not optimally seen. 4. No additional abnormality is definitely appreciated. Diagnostic code #2
--- NOTE | 2020-02-16 12:02 | PCM.DCSUM1 ---
<Feliz Awan - Last Filed: 02/16/20 12:24> Discharge Summary - Hospital Course HPI Initial Comments: This is an 80 yo male who presented to our ED late on 02/15/2020 with chest pain and fatigue. He reports that the pain started in February or March of this year. Reports that it is an ache but states is a genuine pain and not just a discomfort. Denies any radiation however feels a numbness and tingling sensation on his fourth and fifth fingers and up his arm. Reports escalation of dyspnea and mild diaphoresis but no associated nausea or sense of impending doom. States has been fatigued with exertion for the past 2 weeks. Reports the pain presents with exertion but relieves with rest. States that symptom with C and duration have been increasing. Pain was present prior to ED admission but he remained pain-free in the ED. Believes he had a cardiac stress test 2 years prior which was negative. States he saw a physician 2 weeks prior but no testing was done. Denies any recent fever, chills, sore throat, ear pain, nasal or sinus congestion, cough, palpitations, nausea, vomiting, constipation, diarrhea, abdominal pain, urinary symptoms, recent rate weight gain or weight loss, recent bloody bowel movements or black bowel movements, joint aches, headaches, or rashes. In the ED temp was 36.8 Celsius. Pulse 57. Respirations 16. Blood pressure was 128/72. Pulse ox 97% on room air. Twelve-lead EKG is obtained showing a sinus rhythm at 62 bpm with left axis deviation. This was compared to a prior twelve-lead EKG from 05/09/2019 with no change noted. Labs were obtained and CBC is grossly normal. D-dimer is elevated at 1.48. CMP is grossly normal however creatinine is noted to be 1.4, GFR is 49, and BUN is 31. Troponin is less than 0.017. BNP is 743. He started on NS and given the pneumonia and influenza vaccine. Chest x-ray is obtained showing probable bibasilar atelectasis and other incidental findings. Given the elevated D-dimer a CTA is obtained showing "1. Groundglass appearance within the right lung base. This could represent mild pneumonia as well as an area of atelectasis. 2. Minimal atelectasis within the left lung base. 3. No findings of pulmonary embolism. Nothing acute is otherwise seen. Carries a history of HLD, hypertension, sleep apnea, osteoarthritis, and "prediabetes". He was never a smoker. His PCP is Dr. Barba. He is subsequently admitted to the floor observation status on telemetry for monitoring of his chest pain. Diagnosis: Stroke: No - Discharge Data Discharge Date: 02/16/20 (Admit date: 02/16/2020) Discharge Disposition: Home, Self-Care 01 Condition: Good - Referral to Home Health Primary Care Physician: Jus Brager MD - Discharge Diagnosis/Problem(s) (1) HLD (hyperlipidemia) SNOMED Code(s): 84641667 ICD Code: E78.5 - HYPERLIPIDEMIA, UNSPECIFIED Status: Chronic Priority: High Qualifiers: Hyperlipidemia type: unspecified Qualified Code(s): E78.5 - Hyperlipidemia, unspecified (2) HTN (hypertension) SNOMED Code(s): 84833858 ICD Code: I10 - ESSENTIAL (PRIMARY) HYPERTENSION Status: Chronic Priority: Medium Qualifiers: Hypertension type: unspecified Qualified Code(s): I10 - Essential (primary) hypertension (3) Sleep apnea SNOMED Code(s): 93088092 ICD Code: G47.30 - SLEEP APNEA, UNSPECIFIED Status: Chronic Priority: Medium Qualifiers: Sleep apnea type: unspecified type Qualified Code(s): G47.30 - Sleep apnea, unspecified (4) Prediabetes SNOMED Code(s): 078959835 ICD Code: R73.03 - PREDIABETES Status: Chronic Priority: Medium (5) Chest pain SNOMED Code(s): 80468159 ICD Code: R07.9 - CHEST PAIN, UNSPECIFIED Status: Acute Priority: High Qualifiers: Chest pain type: unspecified Qualified Code(s): R07.9 - Chest pain, unspecified (6) RUQ abdominal pain SNOMED Code(s): 828930237 ICD Code: R10.11 - RIGHT UPPER QUADRANT PAIN Status: Acute Priority: High - Patient Summary/Data Labs Pending at D/C: None Recommended Follow-up Testing/Procedures: Follow-up with primary care provider as scheduled. Follow-up for outpatient stress test as directed. Hospital Course: Patient was admitted to the hospital floor observation status for chest pain rule out. Plan was to stress test the patient, however unfortunately this was unable to be scheduled until this coming Thursday. On the floor patient reports that pain had greatly improved. Prior to discharge pain had resolved completely. Patient was reporting right upper quadrant pain on admission when examined, however he reported that it was very minimal and only noted with very deep inspiration. Troponin in the ER and on the floor were both negative. Repeat twelve-lead on the floor was negative for any acute findings. Abdominal ultrasound was ordered given the location of the patient's pain and unfortunate this was a suboptimal study. Nothing acute was noted. Consider repeating this study outpatient should symptoms continue. Repeat labs showed an improvement in creatinine. Patient was noted to have some bilateral atelectasis and was given an incentive spirometer. He was instructed to continue to utilize this for the next 1 to 2 weeks. Although it is not felt this current pain was cardiac related patient does have concerning symptoms for heart block as such as dyspnea on exertion that has been increasing in frequency and duration. His history of hyperlipidemia, prediabetes, sleep apnea, and hypertension are also concerning for cardiac risk. Due to this recommend patient receive outpatient ambulatory stress test. Will attempt to schedule prior to discharge. Lipid panel obtained today was within normal limits. Vital signs have been stable. Patient scheduled to follow-up with Shayla Felix NP, as his primary care provider is out of town. He was instructed to contact his primary care provider or return to the emergency room should symptoms worsen. He was discharged home today. No new medications or home medication changes. - Patient Instructions Diet: Usual Diet as Tolerated Activity: As Tolerated Showering/Bathing: May Shower Notify Provider of: Fever, Increased Pain, Nausea and/or Vomiting Other/Special Instructions: Follow-up with primary care provider as scheduled. Recommend outpatient stress test. Recommend you continue to utilize you incentive spirometer (Clear/Blue device you inahle through) for 1-2 more weeks. Should symptoms return or worsen contact your primary care provider or return to the emergency department. - Discharge Plan *PRESCRIPTION DRUG MONITORING PROGRAM REVIEWED*: No *COPY OF PRESCRIPTION DRUG MONITORING REPORT IN PATIENT MELI: No Home Medications: Home Meds Ascorbic Acid [Vitamin C] 500 mg PO DAILY 05/06/19 [History] Iron 18 mg PO DAILY 05/06/19 [History] Lisinopril/Hydrochlorothiazide [Lisinopril-Hctz -.5 mg Tab] 1 tab PO DAILY 05/06/19 [History] Metoprolol Succinate [Toprol XL] 25 mg PO DAILY 05/06/19 [History] Rosuvastatin [Crestor] 10 mg PO DAILY 02/15/20 [History] Oxygen Therapy Mode: Room Air Patient Handouts: Nonspecific Chest Pain, Adult, [id number] Forms: ED Department Discharge Referrals: Jus Barger MD [Primary Care Provider] - 02/23/20 11:45 am (come 15 minutes prior to the appointment to register. Bring phot ID and insurance cards.) - Discharge Summary/Plan Comment DC Time >30 min.: No - General Info Date of Service: 02/16/20 Admission Dx/Problem (Free Text: Admission Diagnosis/Problem Admission Diagnosis/Problem Chest pain Functional Status: Reports: Pain Controlled, Tolerating Diet, Ambulating, Urinating, Incentive Spirometry. Denies: New Symptoms - Review of Systems General: Reports: No Symptoms. Denies: Fever, Weakness, Fatigue, Malaise, Chills HEENT: Reports: No Symptoms. Denies: Headaches, Sore Throat Pulmonary: Reports: No Symptoms. Denies: Shortness of Breath, Pleuritic Chest Pain, Cough, Sputum, Wheezing Cardiovascular: Reports: No Symptoms. Denies: Chest Pain, Palpitations, Dyspnea on Exertion, Edema Gastrointestinal: Reports: No Symptoms. Denies: Abdominal Pain, Constipation, Diarrhea, Nausea, Vomiting Genitourinary: Reports: No Symptoms. Denies: Pain Musculoskeletal: Reports: No Symptoms Skin: Reports: No Symptoms. Denies: Cyanosis Neurological: Reports: No Symptoms. Denies: Confusion, Numbness, Pre-Existing Deficit, Tingling, Difficulty Walking, Weakness, Gait Disturbance Psychiatric: Reports: No Symptoms - Patient Data Vitals - Most Recent: Last Vital Signs Temp 97 F 02/16/20 07:43 Pulse 66 02/16/20 07:43 Resp 16 02/16/20 07:43 BP 141/89 H 02/16/20 07:43 Pulse Ox 94 L 02/16/20 07:43 Weight - Most Recent: 99.654 kg I&O - Last 24 hours: Intake & Output 02/15/20 02/16/20 02/16/20 22:59 06:59 14:59 Intake Total 206 220 Balance 206 220 Lab Results - Last 24 hrs: Laboratory Results - last 24 hr 02/15/20 02/15/20 02/15/20 Range/Units 22:35 22:35 22:35 WBC 6.10 (4.23-9.07) K/mm3 RBC 4.72 (4.63-6.08) M/mm3 Hgb 15.1 (13.7-17.5) gm/dl Hct 45.2 (40.1-51.0) % MCV 95.8 H (79.0-92.2) fl MCH 32.0 (25.7-32.2) pg MCHC 33.4 (32.2-35.5) g/dl RDW Std Deviation 46.0 H (35.1-43.9) fL Plt Count 208 (163-337) K/mm3 MPV 9.9 (9.4-12.3) fl Neutrophils % (Manual) 71 H (40-60) % Band Neutrophils % 1 (0-10) % Lymphocytes % (Manual) 20 (20-40) % Atypical Lymphs % 0 % Monocytes % (Manual) 7 (2-10) % Eosinophils % (Manual) 0 L (0.8-7.0) % Basophils % (Manual) 1 (0.2-1.2) Platelet Estimate Adequate RBC Morph Comment Normal D-Dimer, Quantitative 1.48 H (0.19-0.50) mg/L Sodium 140 (136-145) mEq/L Potassium 4.3 (3.5-5.1) mEq/L Chloride 106 (98-107) mEq/L Carbon Dioxide 27 (21-32) mEq/L Anion Gap 11.3 (5-15) BUN 31 H (7-18) mg/dL Creatinine 1.4 H (0.7-1.3) mg/dL Est Cr Clr Drug Dosing 46.19 mL/min Estimated GFR (MDRD) 49 (>60) mL/min BUN/Creatinine Ratio 22.1 H (14-18) Glucose 101 (83-115) mg/dL Calcium 8.8 (8.5-10.1) mg/dL Magnesium 2.1 (1.8-2.4) mg/dl Total Bilirubin 0.4 (0.2-1.0) mg/dL AST 17 (15-37) U/L ALT 23 (16-63) U/L Alkaline Phosphatase 104 (46-116) U/L Troponin I < 0.017 (0.00-0.056) ng/mL NT-Pro-B Natriuret Pep (0-450) pg/mL Total Protein 6.5 (6.4-8.2) g/dl Albumin 3.9 (3.4-5.0) g/dl Globulin 2.6 gm/dL Albumin/Globulin Ratio 1.5 (1-2) Triglycerides (<150) mg/dL Cholesterol (<200) mg/dL LDL Cholesterol Direct (<100) mg/dL HDL Cholesterol (40-59) mg/dL SARS-CoV-2 RNA (JB) (NEGATIVE) 02/15/20 02/16/20 02/16/20 Range/Units 22:35 02:48 08:55 WBC (4.23-9.07) K/mm3 RBC (4.63-6.08) M/mm3 Hgb (13.7-17.5) gm/dl Hct (40.1-51.0) % MCV (79.0-92.2) fl MCH (25.7-32.2) pg MCHC (32.2-35.5) g/dl RDW Std Deviation (35.1-43.9) fL Plt Count (163-337) K/mm3 MPV (9.4-12.3) fl Neutrophils % (Manual) (40-60) % Band Neutrophils % (0-10) % Lymphocytes % (Manual) (20-40) % Atypical Lymphs % % Monocytes % (Manual) (2-10) % Eosinophils % (Manual) (0.8-7.0) % Basophils % (Manual) (0.2-1.2) Platelet Estimate RBC Morph Comment D-Dimer, Quantitative (0.19-0.50) mg/L Sodium 140 (136-145) mEq/L Potassium 4.0 (3.5-5.1) mEq/L Chloride 104 (98-107) mEq/L Carbon Dioxide 27 (21-32) mEq/L Anion Gap 13.0 (5-15) BUN 23 H (7-18) mg/dL Creatinine 1.2 (0.7-1.3) mg/dL Est Cr Clr Drug Dosing 53.89 mL/min Estimated GFR (MDRD) 58 (>60) mL/min BUN/Creatinine Ratio 19.2 H (14-18) Glucose 104 (83-115) mg/dL Calcium 9.2 (8.5-10.1) mg/dL Magnesium (1.8-2.4) mg/dl Total Bilirubin (0.2-1.0) mg/dL AST (15-37) U/L ALT (16-63) U/L Alkaline Phosphatase (46-116) U/L Troponin I 0.021 (0.00-0.056) ng/mL NT-Pro-B Natriuret Pep 743 H (0-450) pg/mL Total Protein (6.4-8.2) g/dl Albumin (3.4-5.0) g/dl Globulin gm/dL Albumin/Globulin Ratio (1-2) Triglycerides (<150) mg/dL Cholesterol (<200) mg/dL LDL Cholesterol Direct (<100) mg/dL HDL Cholesterol (40-59) mg/dL SARS-CoV-2 RNA (JB) Negative (NEGATIVE) 02/16/20 Range/Units 08:57 WBC (4.23-9.07) K/mm3 RBC (4.63-6.08) M/mm3 Hgb (13.7-17.5) gm/dl Hct (40.1-51.0) % MCV (79.0-92.2) fl MCH (25.7-32.2) pg MCHC (32.2-35.5) g/dl RDW Std Deviation (35.1-43.9) fL Plt Count (163-337) K/mm3 MPV (9.4-12.3) fl Neutrophils % (Manual) (40-60) % Band Neutrophils % (0-10) % Lymphocytes % (Manual) (20-40) % Atypical Lymphs % % Monocytes % (Manual) (2-10) % Eosinophils % (Manual) (0.8-7.0) % Basophils % (Manual) (0.2-1.2) Platelet Estimate RBC Morph Comment D-Dimer, Quantitative (0.19-0.50) mg/L Sodium (136-145) mEq/L Potassium (3.5-5.1) mEq/L Chloride (98-107) mEq/L Carbon Dioxide (21-32) mEq/L Anion Gap (5-15) BUN (7-18) mg/dL Creatinine (0.7-1.3) mg/dL Est Cr Clr Drug Dosing mL/min Estimated GFR (MDRD) (>60) mL/min BUN/Creatinine Ratio (14-18) Glucose (83-115) mg/dL Calcium (8.5-10.1) mg/dL Magnesium (1.8-2.4) mg/dl Total Bilirubin (0.2-1.0) mg/dL AST (15-37) U/L ALT (16-63) U/L Alkaline Phosphatase (46-116) U/L Troponin I (0.00-0.056) ng/mL NT-Pro-B Natriuret Pep (0-450) pg/mL Total Protein (6.4-8.2) g/dl Albumin (3.4-5.0) g/dl Globulin gm/dL Albumin/Globulin Ratio (1-2) Triglycerides 72 (<150) mg/dL Cholesterol 126 (<200) mg/dL LDL Cholesterol Direct 73 (<100) mg/dL HDL Cholesterol 42.0 (40-59) mg/dL SARS-CoV-2 RNA (JB) (NEGATIVE) Med Orders - Current: Current Medications Acetaminophen (Tylenol) 650 mg PO Q4H PRN PRN Reason: Pain (Mild 1-3)/fever Non-Formulary Medication (Ascorbic Acid [Vitamin C]) 500 mg PO DAILY [facility] Non-Formulary Medication (Iron [Iron]) 18 mg PO DAILY [facility] Lisinopril-Hctz 10- (12.5 Mg Ptom) 0 tab PO DAILY [facility] Last Admin: 02/16/20 10:10 Dose: 1 tab Documented by: Metoprolol Succinate (25 Mg Ptom) 0 mg PO DAILY [facility] Last Admin: 02/16/20 10:09 Dose: 25 mg Documented by: Rosuvastatin 10 Mg * (*Ptom) 0 mg PO DAILY [facility] Last Admin: 02/16/20 10:08 Dose: 10 mg Documented by: Discontinued Medications Sodium Chloride (Normal Saline) 1,000 mls @ 100 mls/hr IV ASDIRECTED [facility] Last Admin: 02/16/20 00:41 Dose: 100 mls/hr Documented by: Influenza Virus Vaccine (Fluzone High-Dose Quad 2019-) 240 mcg IM .ONCE ONE Stop: 02/15/20 22:46 Last Admin: 02/16/20 00:41 Dose: 240 mcg Documented by: Pneumococcal Polyvalent Vaccine (Pneumovax 23) 0.5 ml IM .ONCE ONE Stop: 02/16/20 10:01 Last Admin: 02/16/20 11:13 Dose: 0.5 ml Documented by: - Exam Quality Assessment: Reports: DVT Prophylaxis. Denies: Supplemental Oxygen, Urine Catheter General: Reports: Alert, Oriented, Cooperative, No Acute Distress HEENT: Reports: Pupils Equal, Pupils Reactive, Mucous Membr. Moist/[place] Neck: Reports: Supple, Trachea Midline Lungs: Reports: Clear to Auscultation, Normal Respiratory Effort Cardiovascular: Reports: Regular Rate, Regular Rhythm GI/Abdominal Exam: Normal Bowel Sounds, Soft, Non-Tender, No Distention (Male) Exam: Deferred Rectal (Males) Exam: Deferred Back Exam: Reports: Normal Inspection, Full Range of Motion Extremities: Normal Inspection, Normal Range of Motion, Non-Tender, No Pedal Edema, Normal Capillary Refill Skin: Reports: Warm, Dry, Intact Neurological: Reports: No New Focal Deficit Psy/Mental Status: Reports: Alert, Normal Affect, Normal Mood #1 Interpretation EKG Date: 02/16/20 Time: 11:53 Rhythm: Other (Sinus bradycardia) Rate (Beats/Min): 58 [place]: LAD-Left [place] Deviation P-Wave: Present QRS: Normal ST-T: Normal QT: Normal Comparison: No Change EKG Interpretation Comments: Unifocal PVCs, 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 Abnormal EKG <Daniel Engle - Last Filed: 02/16/20 15:44> Discharge Summary - Referral to Home Health Primary Care Physician: Jus Barger MD - Patient Summary/Data Hospital Course: I have seen and evaluated the patient independently of Feliz Awan PA-C. I have reviewed and agree with the plan of care as outlined by him for this patient. Please see orders. - Patient Data Vitals - Most Recent: Last Vital Signs Temp 36.1 C 02/16/20 12:02 Pulse 61 02/16/20 12:02 Resp 16 12/24/20 12:02 BP 110/69 02/16/20 12:02 Pulse Ox 93 L 02/16/20 12:03 I&O - Last 24 hours: Intake & Output 02/16/20 02/16/20 02/16/20 06:59 14:59 22:59 Intake Total 206 520 Balance 206 520 Lab Results - Last 24 hrs: Laboratory Results - last 24 hr 02/15/20 02/15/20 02/15/20 Range/Units 22:35 22:35 22:35 WBC 6.10 (4.23-9.07) K/mm3 RBC 4.72 (4.63-6.08) M/mm3 Hgb 15.1 (13.7-17.5) gm/dl Hct 45.2 (40.1-51.0) % MCV 95.8 H (79.0-92.2) fl MCH 32.0 (25.7-32.2) pg MCHC 33.4 (32.2-35.5) g/dl RDW Std Deviation 46.0 H (35.1-43.9) fL Plt Count 208 (163-337) K/mm3 MPV 9.9 (9.4-12.3) fl Neutrophils % (Manual) 71 H (40-60) % Band Neutrophils % 1 (0-10) % Lymphocytes % (Manual) 20 (20-40) % Atypical Lymphs % 0 % Monocytes % (Manual) 7 (2-10) % Eosinophils % (Manual) 0 L (0.8-7.0) % Basophils % (Manual) 1 (0.2-1.2) Platelet Estimate Adequate RBC Morph Comment Normal D-Dimer, Quantitative 1.48 H (0.19-0.50) mg/L Sodium 140 (136-145) mEq/L Potassium 4.3 (3.5-5.1) mEq/L Chloride 106 (98-107) mEq/L Carbon Dioxide 27 (21-32) mEq/L Anion Gap 11.3 (5-15) BUN 31 H (7-18) mg/dL Creatinine 1.4 H (0.7-1.3) mg/dL Est Cr Clr Drug Dosing 46.19 mL/min Estimated GFR (MDRD) 49 (>60) mL/min BUN/Creatinine Ratio 22.1 H (14-18) Glucose 101 (83-115) mg/dL Calcium 8.8 (8.5-10.1) mg/dL Magnesium 2.1 (1.8-2.4) mg/dl Total Bilirubin 0.4 (0.2-1.0) mg/dL AST 17 (15-37) U/L ALT 23 (16-63) U/L Alkaline Phosphatase 104 (46-116) U/L Troponin I < 0.017 (0.00-0.056) ng/mL NT-Pro-B Natriuret Pep (0-450) pg/mL Total Protein 6.5 (6.4-8.2) g/dl Albumin 3.9 (3.4-5.0) g/dl Globulin 2.6 gm/dL Albumin/Globulin Ratio 1.5 (1-2) Triglycerides (<150) mg/dL Cholesterol (<200) mg/dL LDL Cholesterol Direct (<100) mg/dL HDL Cholesterol (40-59) mg/dL SARS-CoV-2 RNA (JB) (NEGATIVE) 02/15/20 02/16/20 02/16/20 Range/Units 22:35 02:48 08:55 WBC (4.23-9.07) K/mm3 RBC (4.63-6.08) M/mm3 Hgb (13.7-17.5) gm/dl Hct (40.1-51.0) % MCV (79.0-92.2) fl MCH (25.7-32.2) pg MCHC (32.2-35.5) g/dl RDW Std Deviation (35.1-43.9) fL Plt Count (163-337) K/mm3 MPV (9.4-12.3) fl Neutrophils % (Manual) (40-60) % Band Neutrophils % (0-10) % Lymphocytes % (Manual) (20-40) % Atypical Lymphs % % Monocytes % (Manual) (2-10) % Eosinophils % (Manual) (0.8-7.0) % Basophils % (Manual) (0.2-1.2) Platelet Estimate RBC Morph Comment D-Dimer, Quantitative (0.19-0.50) mg/L Sodium 140 (136-145) mEq/L Potassium 4.0 (3.5-5.1) mEq/L Chloride 104 (98-107) mEq/L Carbon Dioxide 27 (21-32) mEq/L Anion Gap 13.0 (5-15) BUN 23 H (7-18) mg/dL Creatinine 1.2 (0.7-1.3) mg/dL Est Cr Clr Drug Dosing 53.89 mL/min Estimated GFR (MDRD) 58 (>60) mL/min BUN/Creatinine Ratio 19.2 H (14-18) Glucose 104 (83-115) mg/dL Calcium 9.2 (8.5-10.1) mg/dL Magnesium (1.8-2.4) mg/dl Total Bilirubin (0.2-1.0) mg/dL AST (15-37) U/L ALT (16-63) U/L Alkaline Phosphatase (46-116) U/L Troponin I 0.021 (0.00-0.056) ng/mL NT-Pro-B Natriuret Pep 743 H (0-450) pg/mL Total Protein (6.4-8.2) g/dl Albumin (3.4-5.0) g/dl Globulin gm/dL Albumin/Globulin Ratio (1-2) Triglycerides (<150) mg/dL Cholesterol (<200) mg/dL LDL Cholesterol Direct (<100) mg/dL HDL Cholesterol (40-59) mg/dL SARS-CoV-2 RNA (JB) Negative (NEGATIVE) 02/16/20 Range/Units 08:57 WBC (4.23-9.07) K/mm3 RBC (4.63-6.08) M/mm3 Hgb (13.7-17.5) gm/dl Hct (40.1-51.0) % MCV (79.0-92.2) fl MCH (25.7-32.2) pg MCHC (32.2-35.5) g/dl RDW Std Deviation (35.1-43.9) fL Plt Count (163-337) K/mm3 MPV (9.4-12.3) fl Neutrophils % (Manual) (40-60) % Band Neutrophils % (0-10) % Lymphocytes % (Manual) (20-40) % Atypical Lymphs % % Monocytes % (Manual) (2-10) % Eosinophils % (Manual) (0.8-7.0) % Basophils % (Manual) (0.2-1.2) Platelet Estimate RBC Morph Comment D-Dimer, Quantitative (0.19-0.50) mg/L Sodium (136-145) mEq/L Potassium (3.5-5.1) mEq/L Chloride (98-107) mEq/L Carbon Dioxide (21-32) mEq/L Anion Gap (5-15) BUN (7-18) mg/dL Creatinine (0.7-1.3) mg/dL Est Cr Clr Drug Dosing mL/min Estimated GFR (MDRD) (>60) mL/min BUN/Creatinine Ratio (14-18) Glucose (83-115) mg/dL Calcium (8.5-10.1) mg/dL Magnesium (1.8-2.4) mg/dl Total Bilirubin (0.2-1.0) mg/dL AST (15-37) U/L ALT (16-63) U/L Alkaline Phosphatase (46-116) U/L Troponin I (0.00-0.056) ng/mL NT-Pro-B Natriuret Pep (0-450) pg/mL Total Protein (6.4-8.2) g/dl Albumin (3.4-5.0) g/dl Globulin gm/dL Albumin/Globulin Ratio (1-2) Triglycerides 72 (<150) mg/dL Cholesterol 126 (<200) mg/dL LDL Cholesterol Direct 73 (<100) mg/dL HDL Cholesterol 42.0 (40-59) mg/dL SARS-CoV-2 RNA (JB) (NEGATIVE) Med Orders - Current: Current Medications Discontinued Medications Acetaminophen (Tylenol) 650 mg PO Q4H PRN PRN Reason: Pain (Mild 1-3)/fever Sodium Chloride (Normal Saline) 1,000 mls @ 100 mls/hr IV ASDIRECTED [facility] Last Admin: 02/16/20 00:41 Dose: 100 mls/hr Documented by: Influenza Virus Vaccine (Fluzone High-Dose Quad ) 240 mcg IM .ONCE ONE Stop: 02/15/20 22:46 Last Admin: 02/16/20 00:41 Dose: 240 mcg Documented by: Non-Formulary Medication (Ascorbic Acid [Vitamin C]) 500 mg PO DAILY [facility] Non-Formulary Medication (Iron [Iron]) 18 mg PO DAILY [facility] Lisinopril-Hctz 10- (12.5 Mg Ptom) 0 tab PO DAILY [facility] Last Admin: 02/16/20 10:10 Dose: 1 tab Documented by: Metoprolol Succinate (25 Mg Ptom) 0 mg PO DAILY [facility] Last Admin: 02/16/20 10:09 Dose: 25 mg Documented by: Rosuvastatin 10 Mg * (*Ptom) 0 mg PO DAILY [facility] Last Admin: 02/16/20 10:08 Dose: 10 mg Documented by: Pneumococcal Polyvalent Vaccine (Pneumovax 23) 0.5 ml IM .ONCE ONE Stop: 02/16/20 10:01 Last Admin: 02/16/20 11:13 Dose: 0.5 ml Documented by:
[2020-02-16 12:22] VITALS: BP 110/69; PULSE 61
== END 2020-02-16 13:00 | disposition home or self-care (01) ==
LOC: JD.ED 22:23 → JD.ICU 02-16 02:46
PROVIDERS: ADMIT Family Medicine; ATTEND Family Medicine
DX: R07.9 Chest pain, unspecified (principal); E78.00 Pure hypercholesterolemia, unspecified; G47.30 Sleep apnea, unspecified; R73.03 Prediabetes; Z98.890 Other specified postprocedural states; Z20.828 Contact with and (suspected) exposure to other viral communicable diseases; Z79.899 Other long term (current) drug therapy
CPT/HCPCS: 36415; 71046; 71046-26; 71275; 71275-26; 76705; 76705-26; 80048; 80053; 80061; 83735; 83880; 84484; 85007; 85027; 85379; 90662; 90732; 93005; 99285-25; A9270-GY; G0008; G0009; G0378; J7030; U0002

== ENCOUNTER 2020-12-13 10:05 | Emergency (ER) | payer MEDICARE, BC ==
--- NOTE | 2020-12-13 10:27 | EDM.PDOC ---
ED HPI GENERAL MEDICAL PROBLEM - General Chief Complaint: General Stated Complaint: COVID +\WEAK Time Seen by Provider: 12/13/20 10:34 Source of Information: Reports: Patient History Limitations: Reports: No Limitations - History of Present Illness INITIAL COMMENTS - FREE TEXT/NARRATIVE: 80-year-old male presents to the ED for evaluation of COVID-19 illness. This was diagnosed by testing this morning. Patient has not never been vaccinated. He did receive his flu shot 2 weeks ago he states symptoms started about last December 05. Started with chills fever then body aches headache and nasal congestion. It is progressed to paroxysmal intermittent cough which is minimally productive of whitish sputum. Fatigue loss of appetite very mild diarrhea this morning only. No vomiting. 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 Headache has been better the last few days. Stayed in bed all day yesterday due to fatigue. 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 No history of myocardial infarction or heart failure to his knowledge. He is not diabetic. Therefore appears that he is on day 9 or 10 of illness Onset: Sudden Onset Date: 12/05/20 ([place] chills on the evening of December 05) Duration: Day(s):, Constant, Getting Worse Location: Reports: Chest (Increased chest congestion and cough.), Other (Fatigue loss of appetite.) Quality: Reports: Ache (Generalized myalgia which is getting a bit better. Headache has been better as well.), Other (Mild diarrhea starting this morning.) Severity: Moderate Improves with: Reports: Rest Worsens with: Reports: Movement Context: Reports: Other (He is not sure where he picked up COVID-19 from.). Denies: Activity, Exercise, Lifting, Sick Contact Associated Symptoms: Reports: Cough, cough w sputum, Fever/Chills (More so at onset of illness a week ago or so again at onset of), Headaches, Loss of Appetite (White sputum occasionally.), Malaise, Shortness of Breath (Mild on exertion), Weakness, Other (Very mild diarrhea or loose stool this morning). 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 Headache Pain Score (Numeric/FACES): 3 - Related Data Allergies Allergy/AdvReac Type Severity Reaction Status Date / Time No Known Allergies Allergy Verified 12/13/20 10:16 Home Meds: Home Meds Ascorbic Acid [Vitamin C] 500 mg PO DAILY 05/06/19 [History] Iron 18 mg PO DAILY 05/06/19 [History] Lisinopril/Hydrochlorothiazide [Lisinopril-Hctz 10-12.5 mg Tab] 1 tab PO DAILY 05/06/19 [History] Metoprolol Succinate [Toprol XL] 25 mg PO DAILY 05/06/19 [History] Rosuvastatin [Crestor] 10 mg PO DAILY 02/15/20 [History] Past Medical History HEENT History: Reports: Hard of Hearing, Impaired Vision Cardiovascular History: Reports: High Cholesterol, Hypertension Respiratory History: Reports: Sleep Apnea Gastrointestinal History: Reports: None Genitourinary History: Reports: None 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 Musculoskeletal History: Reports: Fracture, Osteoarthritis Other Musculoskeletal History: left wrist fracture Psychiatric History: Reports: None Endocrine/Metabolic History: Reports: Other (See Below) Hematologic History: Reports: None Oncologic (Cancer) History: Reports: None Dermatologic History: Reports: None - Infectious Disease History Infectious Disease History: Reports: Chicken Pox, Novel Coronavirus, Shingles - Past Surgical History Head Surgeries/Procedures: Reports: None HEENT Surgical History: Reports: Cataract Surgery, Eye Surgery, Oral Surgery Cardiovascular Surgical History: Reports: Other (See Below) Other Cardiovascular Surgeries/Procedures: triple bypass Feb 2020 Respiratory Surgical History: Reports: None GI Surgical History: Reports: Colonoscopy Male Surgical History: Reports: None Endocrine Surgical History: Reports: None Neurological Surgical History: Reports: Lumbar Spine Musculoskeletal Surgical History: Reports: Knee Replacement, ORIF Other Musculoskeletal Surgeries/Procedures:: bilateral Oncologic Surgical History: Reports: None Dermatological Surgical History: Reports: None Social & Family History - Family History Family Medical History: No Pertinent Family History Cardiac: Reports: None Oncologic: Reports: Colon - Tobacco Use Tobacco Use Status *Q: Never Tobacco User Second Hand Smoke Exposure: No - Caffeine Use Caffeine Use: Reports: Coffee - Recreational Drug Use Recreational Drug Use: No - Living Situation & Occupation Living situation: Reports: , Alone Occupation: Retired ED ROS GENERAL - Review of Systems Review Of Systems: See Below Constitutional: Reports: Fever, Chills (With onset of illness a week ago.), Malaise ( With onset of weakness a week ago but not lately.), Weakness, Fatigue, Decreased Appetite. Denies: Weight Loss HEENT: Reports: Glasses, Other (Has had previous cataract extraction) Respiratory: Reports: Shortness of Breath, Cough. Denies: Wheezing, Pleuritic Chest Pain, Sputum Cardiovascular: Reports: Blood Pressure Problem, Dyspnea on Exertion. Denies: Chest Pain, Claudication, Edema, Lightheadedness, Orthopnea Endocrine: Reports: Fatigue GI/Abdominal: Reports: Diarrhea (Mild diarrhea stool this morning he states semiformed.), Decreased Appetite, Nausea. Denies: Vomiting (Mild intermittent nausea no vomiting) : Reports: Frequency, Other (Nocturia x1-2 has BPH) Musculoskeletal: Reports: Joint Pain (Joseph changes neck lower back with p revious surgery to lumbar spine knees and hips) Skin: Reports: No Symptoms Neurological: Reports: Headache (With initial onset of illness but not now), Weakness (Unrealized). Denies: Confusion, Dizziness, Numbness, Syncope, Tingling, Tremors, Trouble Speaking, Difficulty Walking, Change in Speech Psychiatric: Reports: No Symptoms Hematologic/Lymphatic: Reports: No Symptoms Immunologic: Reports: No Symptoms ED EXAM, GENERAL - Physical Exam Exam: See Below Exam Limited By: No Limitations General Appearance: Alert, WD/WN, No Apparent Distress, Other (Temperature is 36.1 degrees. Heart rate 93 and sinus respiratory to 16 with O2 sat to sats of 92 to 94% room air. BP is 115/71.) Eye Exam: Bilateral Eye: Normal Inspection (. Previous bilateral cataract extraction intraocular lens implants. No blepharal pallor or scleral icterus ), PERRL Ears: Normal TMs Throat/Mouth: Normal Inspection, Normal Lips, Normal Teeth, Normal Oropharynx Head: Atraumatic, Normocephalic Neck: Normal Inspection, Supple, Non-Tender, Full Range of Motion. No: Lymphadenopathy (L), Lymphadenopathy (R) Respiratory/Chest: No Respiratory Distress, Normal Breath Sounds, No Accessory Muscle Use, Rhonchi (Few scattered rhonchi posterior lower lobe bilaterally.) Cardiovascular: Regular Rate, Rhythm, No Edema, No Gallop, No Murmur, No Rub, Other (Well-healed midline sternotomy incision from triple bypass in February of this year). No: Normal Peripheral Pulses Peripheral Pulses: 2+: Carotid (L), Carotid (R), Posterior Tibial (L), Posterior Tibial (R), Dorsalis Pedis (L), Dorsalis Pedis (R) GI/Abdominal: Normal Bowel Sounds, Soft, Non-Tender, No Organomegaly, No Distention Back Exam: Normal Inspection, Decreased Range of Motion, Other (Patient has had previous lumbar spine surgery.) Extremities: Normal Inspection, Normal Range of Motion, Non-Tender, No Pedal Edema Neurological: Alert, Oriented, CN II-XII Intact, Normal Cognition Psychiatric: Normal Affect, Normal Mood Skin Exam: Warm, Dry, Intact, Normal Color, No Rash #1 Interpretation EKG Date: 12/13/20 Time: 11:22 Rhythm: NSR Rate (Beats/Min): 80 (Occasional unifocal PVCs) [place]: LAD-Left [place] Deviation P-Wave: Enlarged (-41 consider left atrial hypertrophy) QRS: Other (There are Q waves leads V1 to V3 compared with old anteroseptal myocardial infarction. There is Q waves in leads II, III and aVF compared with old inferior wall myocardial infarction. Decreased voltage in the limb leads) ST-T: Other (Nonspecific T wave flattening in leads I and aVL) QT: Normal EKG Interpretation Comments: Abnormal ECG Course - Vital Signs Last Recorded V/S: Last Vital Signs Temp 36.3 C 12/13/20 13:25 Pulse 77 12/13/20 13:25 Resp 20 12/13/20 13:25 BP 111/64 12/13/20 13:25 Pulse Ox 97 12/13/20 13:25 - Orders/Labs/Meds Orders: Active Orders 24 hr Category Date Time Status Vital Signs [RC] Q15M Care 12/13/20 12:02 Active URINALYSIS W/MICROSCOPIC [UA W/MICROSCOPIC] [URIN] Stat Lab 12/13/20 10:47 Ordered Dextrose 5%-0.9% NaCl [Dextrose 5%-Normal Saline] 1,000 Med 12/13/20 10:45 Active ml IV ASDIRECTED EPINEPHrine [Adrenalin] Med 12/13/20 12:02 Active 0.3 mg IM ASDIRECTED PRN Famotidine [Pepcid] Med 12/13/20 12:02 Active 20 mg IVPUSH ASDIRECTED PRN Sodium Chloride 0.9% [Saline Flush] Med 12/13/20 12:15 Active 30 ml FLUSH ASDIRECTED diphenhydrAMINE [Benadryl] Med 12/13/20 12:02 Active 50 mg IVPUSH ASDIRECTED PRN methylPREDNISolone Sod Succ [Solu-MEDROL] Med 12/13/20 12:02 Active 125 mg IVPUSH ASDIRECTED PRN Medication Orders Diphenhydramine HCl (Diphenhydramine 50 Mg/Ml Sdv) 50 mg IVPUSH ASDIRECTED PRN PRN Reason: hypersensitivity reaction Epinephrine HCl (Epinephrine 1 Mg/Ml Sdv) 0.3 mg IM ASDIRECTED PRN PRN Reason: hypersensitivity reaction Famotidine (Famotidine 20 Mg/2 Ml Sdv) 20 mg IVPUSH ASDIRECTED PRN PRN Reason: hypersensitivity reaction Dextrose/Sodium Chloride (Dextrose 5%-Normal Saline) 1,000 mls @ 500 mls/hr IV ASDIRECTED [facility] Last Admin: 12/13/20 11:19 Dose: 500 mls/hr Documented by: DIMAS Methylprednisolone Sodium Succinate (Methylprednisolone Sodium Succinate 125 Mg/2 Ml Sdv) 125 mg IVPUSH ASDIRECTED PRN PRN Reason: hypersensitivity reaction Sodium Chloride (Sodium Chloride 0.9% 10 Ml Syringe) 30 ml FLUSH ASDIRECTED [facility] Labs: Laboratory Tests 12/13/20 12/13/20 12/13/20 Range/Units 10:45 10:46 10:50 WBC 2.70 L (4.23-9.07) K/mm3 RBC 4.78 (4.63-6.08) M/mm3 Hgb 15.6 (13.7-17.5) gm/dl Hct 45.7 (40.1-51.0) % MCV 95.6 H (79.0-92.2) fl MCH 32.6 H (25.7-32.2) pg MCHC 34.1 (32.2-35.5) g/dl RDW Std Deviation 50.8 H (35.1-43.9) fL Plt Count 123 L D (163-337) K/mm3 MPV 10.3 (9.4-12.3) fl Neut % (Auto) 59.3 (34.0-67.9) % Lymph % (Auto) 24.8 (21.8-53.1) % [place] % (Auto) 13.3 H (5.3-12.2) % Eos % (Auto) 2.2 (0.8-7.0) Baso % (Auto) 0.0 L (0.1-1.2) % Neut # (Auto) 1.60 L (1.78-5.38) K/mm3 Lymph # (Auto) 0.67 L (1.32-3.57) K/mm3 [place] # (Auto) 0.36 (0.30-0.82) K/mm3 Eos # (Auto) 0.06 (0.04-0.54) K/mm3 Baso # (Auto) 0.00 L (0.01-0.08) K/mm3 D-Dimer, Quantitative (0.19-0.50) mg/L Sodium 138 (136-145) mEq/L Potassium 4.5 (3.5-5.1) mEq/L Chloride 104 (98-107) mEq/L Carbon Dioxide 26 (21-32) mEq/L Anion Gap 12.5 (5-15) BUN 20 H (7-18) mg/dL Creatinine 1.3 (0.7-1.3) mg/dL Est Cr Clr Drug Dosing 49.74 mL/min Estimated GFR (MDRD) 53 (>60) mL/min BUN/Creatinine Ratio 15.4 (14-18) Glucose 98 (70-99) mg/dL Lactic Acid 1.2 (0.4-2.0) mmol/L Calcium 8.0 L (8.5-10.1) mg/dL Magnesium 1.9 (1.8-2.4) mg/dL Total Bilirubin 0.4 (0.2-1.0) mg/dL AST 31 (15-37) U/L ALT 26 (16-63) U/L Alkaline Phosphatase 81 (46-116) U/L Lactate Dehydrogenase 114 (85-227) U/L Troponin I < 0.017 (0.00-0.056) ng/mL C-Reactive Protein 1.5 H* (<1.0) mg/dL NT-Pro-B Natriuret Pep (0-450) pg/mL Total Protein 6.3 L (6.4-8.2) g/dl Albumin 3.2 L (3.4-5.0) g/dl Globulin 3.1 gm/dL Albumin/Globulin Ratio 1.0 (1-2) 12/13/20 12/13/20 Range/Units 10:50 10:50 WBC (4.23-9.07) K/mm3 RBC (4.63-6.08) M/mm3 Hgb (13.7-17.5) gm/dl Hct (40.1-51.0) % MCV (79.0-92.2) fl MCH (25.7-32.2) pg MCHC (32.2-35.5) g/dl RDW Std Deviation (35.1-43.9) fL Plt Count (163-337) K/mm3 MPV (9.4-12.3) fl Neut % (Auto) (34.0-67.9) % Lymph % (Auto) (21.8-53.1) % [place] % (Auto) (5.3-12.2) % Eos % (Auto) (0.8-7.0) Baso % (Auto) (0.1-1.2) % Neut # (Auto) (1.78-5.38) K/mm3 Lymph # (Auto) (1.32-3.57) K/mm3 [place] # (Auto) (0.30-0.82) K/mm3 Eos # (Auto) (0.04-0.54) K/mm3 Baso # (Auto) (0.01-0.08) K/mm3 D-Dimer, Quantitative 0.98 H (0.19-0.50) mg/L Sodium (136-145) mEq/L Potassium (3.5-5.1) mEq/L Chloride (98-107) mEq/L Carbon Dioxide (21-32) mEq/L Anion Gap (5-15) BUN (7-18) mg/dL Creatinine (0.7-1.3) mg/dL Est Cr Clr Drug Dosing mL/min Estimated GFR (MDRD) (>60) mL/min BUN/Creatinine Ratio (14-18) Glucose (70-99) mg/dL Lactic Acid (0.4-2.0) mmol/L Calcium (8.5-10.1) mg/dL Magnesium (1.8-2.4) mg/dL Total Bilirubin (0.2-1.0) mg/dL AST (15-37) U/L ALT (16-63) U/L Alkaline Phosphatase (46-116) U/L Lactate Dehydrogenase (85-227) U/L Troponin I (0.00-0.056) ng/mL C-Reactive Protein (<1.0) mg/dL NT-Pro-B Natriuret Pep 309 (0-450) pg/mL Total Protein (6.4-8.2) g/dl Albumin (3.4-5.0) g/dl Globulin gm/dL Albumin/Globulin Ratio (1-2) Meds: Medications Generic Name Dose Route Start Last Admin Trade Name Freq PRN Reason Stop Dose Admin Diphenhydramine HCl 50 mg 12/13/20 12:02 Diphenhydramine 50 Mg/Ml Sdv IVPUSH ASDIRECTED PRN hypersensitivity reaction Epinephrine HCl 0.3 mg 12/13/20 12:02 Epinephrine 1 Mg/Ml Sdv IM ASDIRECTED PRN hypersensitivity reaction Famotidine 20 mg 12/13/20 12:02 Famotidine 20 Mg/2 Ml Sdv IVPUSH ASDIRECTED PRN hypersensitivity reaction Dextrose/Sodium Chloride 1,000 mls @ 500 mls/hr 12/13/20 10:45 12/13/20 11:19 Dextrose 5%-Normal Saline IV 500 mls/hr ASDIRECTED JARED Administration Methylprednisolone Sodium Succinate 125 mg 12/13/20 12:02 Methylprednisolone Sodium Succinate 125 Mg/2 Ml Sdv IVPUSH ASDIRECTED PRN hypersensitivity reaction Sodium Chloride 30 ml 12/13/20 12:15 Sodium Chloride 0.9% 10 Ml Syringe FLUSH ASDIRECTED JARED Discontinued Medications Generic Name Dose Route Start Last Admin Trade Name Freq PRN Reason Stop Dose Admin Bamlanivimab 700 mg/ 160 mls @ 310 mls/hr 12/13/20 12:30 12/13/20 12:38 Etesevimab 1,400 mg/ Sodium IV 12/13/20 13:00 310 mls/hr Chloride ONETIME ONE Administration - Radiology Interpretation Free Text/Narrative:: 80-year-old male presents to the ED after being identified to be COVID-19 positive this morning. He has had symptoms dating back to at least December 05. 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 Since then he developed decreased appetite mild nasal congestion mild sore throat now has more of a paroxysmal cough productive of white sputum. Fatigue weakness and loss of appetite. Mild diarrhea this morning for the first time he stayed in bed almost all day yesterday due to fatigue. Diffuse myalgia but better than it was at initial onset of illness. 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 He has no history of congestive failure. He has never been vaccinated for COVID-19 illness. Plan chest x-ray. Routine labs to include LDH, D-dimer and troponin levels. IV fluids at 500 mils an hour since he hardly ate or drank at all for the last 2 days. - Re-Assessments/Exams Free Text/Narrative Re-Assessment/Exam: 12/13/20 11:26 chest x-ray done portably reveals mild cardiomegaly. He does have a dromedary hump of the right hemidiaphragm. He does have a bilateral infiltrates both lower lobes compatible with COVID-19 viral pneumonia. Sitter scar tissue left lower lobe. Mediastinum is normal. 12/13/20 11:35 it is my opinion that the patient is at high risk of requiring hospitalization in the near future because of COVID-19 illness. I believe he should receive monoclonal antibodies as soon as possible. I they are have given him the information to read about monoclonal antibody therapy for himself. I stated that therapy has been approved by an emergency use authorization process and has not been fully FDA reviewed or approved. He is aware of the potential risk from the therapy including allergic reactions and/or anaphylaxis which could cause . I discussed there are other potential treatment options that are currently not FDA approved to treat COVID-19 illness however this is actually false. Offered the opportunity to ask questions and all questions were answered. He voiced understanding and agreed to proceed with treatment for himself Mr. Jose Grimes 12/13/20 11:38 Hematology reveals a low white count of 2.70. The differential shows 59% neutrophils on the auto differential. Hemoglobin is 15.6 with hematocrit of 45.7. MCV is 95.6. Platelet count is 123,000 low normal. D-dimer is mildly elevated at 0.98. 12/13/20 12:05 Chemistry reveals a normal sodium at 138. Potassium is 4.5. Chloride 104 with a bicarb of 26. Anion gap is 12.5. BUN is 20 with a creatinine of 1.3 and a GFR reported to be 53. Glucose is 98. Lactic acid 1.2. Calcium slightly low at 8.0 from not eating well. Magnesium 1.9. Liver function normal. LDH is 114. Troponin I is less than 0.017. C-reactive protein is 1.5. BNP is 309. Total protein 6.3 with an albumin fraction of 3.2Patient has agreed to proceed with monoclonal antibody therapy. At this time hospital is Offering Bamlaminivab and therefore this will be infused over the next hour. I offered the patient to a noon meal but he declined at this time as he not hungry. 12/13/20 13:04 Patient is receiving monoclonal antibody infusion without any problems. He did now decide to eat a bit and is eating a sandwich. 12/13/20 14:10: Patient has had no adverse effects to the monoclonal antibodies. He will be sent home with a pulse oximeter to monitor his blood oxygen levels at home. He was advised that it will go down with walking and exercise. However if it stays below 90 in particular a below 88 for more than 2 consecutive hours he is to return to the hospital. Departure - Departure Time of Disposition: 13:25 Disposition: Home, Self-Care 01 Condition: Fair Clinical Impression: COVID-19 determined by clinical diagnostic criteria - Discharge Information *PRESCRIPTION DRUG MONITORING PROGRAM REVIEWED*: Not Applicable *COPY OF PRESCRIPTION DRUG MONITORING REPORT IN PATIENT MELI: Not Applicable Instructions: COVID-19 Frequently Asked Questions, Things to Know about the COVID-19 Pandemic - CDC (05/09/2020), 10 Things You Can Do to Manage Your COVID- 19 Symptoms at Home - [facility] (09/07/2020), Symptoms of COVID-19 - CDC (04/16/2020), COVID-19: Quarantine vs. Isolation - [facility] (02/09/2020) Referrals: Jus Barger MD [Primary Care Provider] - Forms: ED Department Discharge Additional Instructions: Evaluation in the emergency room today in regards to COVID-19 illness. This has reduced your oxygen levels to between 92 and 94% while in the hospital. X-ray of the chest does reveal mild Covid viral pneumonia right lower lobe of the lung and perhaps slightly in the left lower lobe. Lab test revealed appropriate findings related to COVID-19 illness. Nothing unexpected. You were therefore treated with intravenous monoclonal antibodies in the hopes of providing you with immediate antibodies to the COVID-19 virus and preventing worsening disease. You were sent home with a pulse oximeter and you should check your oxygen levels 3-5 times per day. If they are staying 88% continuously for a per iod of 2 hours or more than you would need to return to the hospital. Symptoms are usually worse from day 8-11 of illness after symptoms started. Plenty of fluids and diet as tolerated. You are considered contagious to others for a minimum of 10 days from the onset of illness and usually should stay away from other people for at least 12 days to prevent spread of the virus. Return to the emergency room or follow-up with primary care physician if any further problems occur. Sepsis Event Note (ED) - Evaluation Sepsis Screening Result: No Definite Risk - Focused Exam Vital Signs: Vital Signs Temp Pulse Resp BP Pulse Ox 12/13/20 13:25 36.3 C 77 20 111/64 97 12/13/20 12:40 36.5 C 72 22 H 106/61 98 12/13/20 10:14 36.1 C 93 16 115/71 94 L - My Orders Last 24 Hours: My Active Orders 12/13/20 10:45 Dextrose 5%-0.9% NaCl [Dextrose 5%-Normal Saline] 1,000 ml IV ASDIRECTED 12/13/20 10:47 URINALYSIS W/MICROSCOPIC [UA W/MICROSCOPIC] [URIN] Stat 12/13/20 12:02 Vital Signs [RC] Q15M EPINEPHrine [Adrenalin] 0.3 mg IM ASDIRECTED PRN Famotidine [Pepcid] 20 mg IVPUSH ASDIRECTED PRN diphenhydrAMINE [Benadryl] 50 mg IVPUSH ASDIRECTED PRN methylPREDNISolone Sod Succ [Solu-MEDROL] 125 mg IVPUSH ASDIRECTED PRN 12/13/20 12:15 Sodium Chloride 0.9% [Saline Flush] 30 ml FLUSH ASDIRECTED - Assessment/Plan Last 24 Hours: My Active Orders 12/13/20 10:45 Dextrose 5%-0.9% NaCl [Dextrose 5%-Normal Saline] 1,000 ml IV ASDIRECTED 12/13/20 10:47 URINALYSIS W/MICROSCOPIC [UA W/MICROSCOPIC] [URIN] Stat 12/13/20 12:02 Vital Signs [RC] Q15M EPINEPHrine [Adrenalin] 0.3 mg IM ASDIRECTED PRN Famotidine [Pepcid] 20 mg IVPUSH ASDIRECTED PRN diphenhydrAMINE [Benadryl] 50 mg IVPUSH ASDIRECTED PRN methylPREDNISolone Sod Succ [Solu-MEDROL] 125 mg IVPUSH ASDIRECTED PRN 12/13/20 12:15 Sodium Chloride 0.9% [Saline Flush] 30 ml FLUSH ASDIRECTED
[2020-12-13] MEDS ORDERED: Dextrose 5%-0.9% NaCl 1,000 ML IV SCH (10:45)
--- NOTE | 2020-12-13 11:17 | CR ---
Chest: Frontal view of the chest was obtained. Comparison: Prior chest x-ray of 02/15/[address] of 02/16/20. Lobulated right hemidiaphragm is noted. Mild increased density is seen within the right lung base. Minimal scarring is noted within the left lung base. Lungs otherwise are clear. Heart size and mediastinum are normal. Prior sternotomy is seen. Impression: 1. Mild increased density within the right lung base. Findings may relate to mild area of COVID pneumonia. 2. Lobulated right hemidiaphragm with slight scarring within the left lung base. 3. Prior sternotomy. Diagnostic code #3
[2020-12-13] MEDS ORDERED: Bamlanivimab 700 MG, ETESEVIMAB 1,400 MG in Sodium Chloride 0.9% 100 ML IV ONE ×2 (12:02→12:30)
[2020-12-13] MEDS ORDERED: EPINEPHrine 1 MG/ML SDV IM PRN (12:02)
[2020-12-13] MEDS ORDERED: Famotidine 20 MG/2 ML SDV IVPUSH PRN (12:02)
[2020-12-13] MEDS ORDERED: diphenhydrAMINE 50 MG/ML SDV IVPUSH PRN (12:02)
[2020-12-13] MEDS ORDERED: methylPREDNISolone Sodium Succinate 125 MG/2 ML SDV IVPUSH PRN (12:02)
[2020-12-13] MEDS ORDERED: Sodium Chloride 0.9% 10 ML Syringe FLUSH SCH (12:15)
[2020-12-13 15:36] VITALS: BP 101/61; PULSE 78
== END 2020-12-13 14:25 | disposition home or self-care (01) ==
LOC: JD.ED 10:05
DX: U07.1 COVID-19 (principal); E78.00 Pure hypercholesterolemia, unspecified; I10 Essential (primary) hypertension; Z79.899 Other long term (current) drug therapy
CPT/HCPCS: 36415; 71045; 80053; 81001; 83605; 83615; 83735; 83880; 84484; 85025; 85379; 86140; 93005; 99285; J7042; M0245; Q0245

== ENCOUNTER 2024-01-02 09:28 | Emergency (ER) | payer MEDICARE, BC ==
[2024-01-02] MEDS: cefTRIAXone 2 GM, Lidocaine 1% 4.2 ML IM ONE (11:27)
[2024-01-02] MEDS: Diphtheria,Pertussis(Acell),Tetanus Vaccine 0.5 ML Syringe IM ONE (11:30)
[2024-01-02 18:07] VITALS: BP 130/67; PULSE 65
== END 2024-01-02 13:05 | disposition home or self-care (01) ==
LOC: JD.ED 09:28
DX: S91.332A Puncture wound without foreign body, left foot, initial encounter (principal); L08.9 Local infection of the skin and subcutaneous tissue, unspecified; Z86.16 Personal history of COVID-19; Z79.899 Other long term (current) drug therapy; Z23 Encounter for immunization; W45.0XXA Nail entering through skin, initial encounter
CPT/HCPCS: 73620; 90471; 90715; 96372; 99283; J0696; J3490

== ENCOUNTER 2024-05-27 18:10 | Emergency (ER) | payer MEDICARE, BC ==
[2024-05-27 18:42] LABS: BASOPHILS ABSOLUTE AUTO 0.1 K/mm3 (0.0-0.2); BASOPHILS PERCENT AUTO 0.8 % (0.0-1.0); EOSINOPHILS ABSOLUTE AUTO 0.2 K/mm3 (0.0-0.4); EOSINOPHILS PERCENT AUTO 3.9 % (0.0-6.0); HEMATOCRIT 50.4 % (42.0-52.0); HEMOGLOBIN 16.7 gm/dl (14.0-18.0); IMMATURE GRAN ABSOLUTE AUTO 0.02 K/mm3 (0.00-0.05); IMMATURE GRAN PERCENT AUTO 0.3 % (0.0-0.4); LYMPHOCYTES ABSOLUTE AUTO 1.7 K/mm3 (1.0-4.8); LYMPHOCYTES PERCENT AUTO 27.4 % (24.0-44.0); MEAN CORPUSCULAR HEMOGLOBIN 32.5 pg (28.0-32.0); MEAN CORPUSCULAR HGB CONC 33.1 g/dl (32.0-36.0); MEAN CORPUSCULAR VOLUME 98.1 fl (83.0-99.0); MEAN PLATELET VOLUME 10.6 fl (9.4-12.4); MONOCYTES ABSOLUTE AUTO 0.5 K/mm3 (0.0-0.8); MONOCYTES PERCENT AUTO 8.1 % (0.0-8.0); NEUTROPHILS ABSOLUTE AUTO 3.7 K/mm3 (1.8-7.7); NEUTROPHILS PERCENT AUTO 59.5 % (41.0-71.0); PLATELET COUNT,PLT 160 K/mm3 (150-400); RED BLOOD CELL COUNT 5.14 M/mm3 (4.52-5.90); WHITE BLOOD CELL COUNT,WBC 6.21 K/mm3 (3.9-11.3)
[2024-05-27 18:51] LABS: INR 1.07; PROTHROMBIN TIME 11.3 SECONDS (9.7-12.0)
[2024-05-27 18:52] LABS: PTT,PARTIAL THROMBOPLSTIN TIME 24.3 SECONDS (21.7-31.4)
[2024-05-27 19:07] LABS: A/G RATIO 1.3 (1-2); ALBUMIN 3.6 g/dl (3.4-5.0); ANION GAP 11.5 (5-15); BILIRUBIN TOTAL 0.5 mg/dL (0.2-1.0); BUN/CREATININE RATIO 18.3 (14-18); CALCIUM 8.8 mg/dL (8.5-10.1); CREATININE 1.2 mg/dL (0.7-1.3); EST CRCL DRUG DOSING (CG) 50.3 mL/min; MAGNESIUM 1.8 mg/dL (1.8-2.4); PROTEIN TOTAL,TP 6.4 g/dl (6.4-8.2)
[2024-05-27 19:12] LABS: POTASSIUM,K 4.5 mEq/L (3.5-5.1)
[2024-05-27 21:17] VITALS: BP 139/72; PULSE 57
== END 2024-05-27 21:07 | disposition home or self-care (01) ==
LOC: JD.ED 18:10
DX: R07.9 Chest pain, unspecified (principal); R06.02 Shortness of breath; I10 Essential (primary) hypertension; I25.10 Atherosclerotic heart disease of native coronary artery without angina pectoris; E78.00 Pure hypercholesterolemia, unspecified; M19.90 Unspecified osteoarthritis, unspecified site; Z79.899 Other long term (current) drug therapy; Z79.02 Long term (current) use of antithrombotics/antiplatelets; Z86.16 Personal history of COVID-19
CPT/HCPCS: 36415; 71045; 71045-26; 80053; 83735; 83880; 84484; 85025; 85610; 85730; 87428-QW; 93005; 93010; 99283; 99285